=== PATIENT | male | born 1940 | race Caucasian/White ===

== ENCOUNTER 2020-04-17 08:31 | Emergency (ER) | payer MEDICARE, SELFPAY ==
[2020-04-17] VITALS (11 sets, daily range): BP systolic 106–134; BP diastolic 57–82; PULSE 55–81; RESP 14–25; TEMP 36.8; O2SAT 93–98
--- NOTE | 2020-04-17 08:45 | RT.EKG_ITS ---
APPROVED REPORT Exam: Resting ECG Patient Location: E HR:62 bpm ECG Measurements Heart Rate 62 AXIS ME 69 P 53 QRSd 137 QRS 59 QT 419 T 0 QTc 425 <Conclusion> Sinus rhythm...normal P axis, V-rate 60- 99 Atrial premature complexes in couplets...pair SV complexes w/ short R-R Right bundle branch block...QRSd>120, terminal axis(90,270)
[2020-04-17] MEDS: Cephalexin 500 MG CAP PO (09:18)
--- NOTE | 2020-04-17 10:01 | W.ED.GENAD ---
Discharge Plan Disposition Patient Disposition: HOME Condition: Stable Discharge Details Chief Complaint: Orthopedic Clinical Impression: APC (atrial premature contractions), Onychomycosis, Infection of toenail Primary Care Provider: Francis Zamora ED Provider: Oscar Gutierrez Home Meds and New Rx's Prescriptions: New cephalexin [Keflex] 500 mg capsule 500 mg PO TID Qty: 20 RF: 0 Continued Prevnar 13 (PF) 0.5 ML syringe 0.5 ml IM ONCE Qty: 1 RF: 0 metoprolol succinate 100 mg tablet extended release 24 hr 50 mg PO BID Qty: 90 RF: 4 tamsulosin [Flomax] 0.4 mg capsule 0.4 mg PO HS Qty: 60 RF: 11 aspirin [Aspir-81] 81 MG tablet,delayed release (DR/EC) 162 mg PO DAILY RF: 0 Discharge Instructions Additional Instructions: Please take antibiotic as prescribed. Please follow-up with podiatry. Call tomorrow. Please follow-up with your executive marketing assistant. Call tomorrow. Please contact your primary care physician to arrange follow-up. Return to the ER for any worsening or new concerning symptoms. Referrals: Abhijit Junior DPM [[facility] STAFF PHYSICIAN] - Francis Zamora MD [Primary Care Provider] - Discharge Data Discharge Date/Time-TO BE ENTERED AT DEPARTURE: 04/17/20 09:44 Medical Decision Making 80-year-old male here with onychomycosis of his right great toe with mild erythema and tenderness medial and proximal nail bed with no fluctuance. Suspect ingrown toenail versus early paronychia. Will prescribe Keflex and have him follow-up with podiatry. I was notified by nursing that patient was having abnormal rhythm. An ECG was done by protocol. ECG was reviewed and interpreted by me and reveals sinus rhythm with frequent PACs. Given history of AVNRT and status post remote ablation with intermittent lightheadedness, I will refer patient to follow-up with his executive marketing assistant. HPI General Mode of arrival: ambulatory. Date/Time Provider Initiated Documentation: 04/17/20 08:35. Limitations to Documentation: no limitations. Information obtained by: patient. HPI Narrative: 80-year-old male with history of AVNRT status post ablation, hyperlipidemia, hypertension, here with chief complaint of toe pain. Patient notes right great toe pain for the past couple days. Pain localized to distal toe along his toenail. He is concern for ingrown toenail. He notes he injured his toe in the remote past and has had chronic deformity of the toenail. Patient denies chest pain, palpitations, or lightheadedness. He does note that he experiences intermittent lightheadedness chronically. Related Data Home Medications Medication Instructions Recorded Confirmed aspirin [Aspir-81] 162 mg PO DAILY 01/12/16 04/17/20 Prevnar 13 (PF) 0.5 ml IM ONCE #1 syr 05/02/18 04/17/20 metoprolol succinate 100 mg 50 mg PO BID #90 tab-cap 12/29/19 04/17/20 tablet,extended release 24 hr tamsulosin 0.4 mg capsule 0.4 mg PO HS #60 tab-cap 01/04/20 04/17/20 cephalexin [Keflex] 500 mg PO TID #20 cap 04/17/20 Previous Rx's Medication Instructions Recorded Prevnar 13 (PF) 0.5 ml IM ONCE #1 syr 05/02/18 metoprolol succinate 100 mg 50 mg PO BID #90 tab-cap 12/29/19 tablet,extended release 24 hr tamsulosin 0.4 mg capsule 0.4 mg PO HS #60 tab-cap 01/04/20 cephalexin [Keflex] 500 mg PO TID #20 cap 04/17/20 Allergies Allergy/AdvReac Type Severity Reaction Status Date / Time peach Allergy Severe hives Verified 04/17/20 08:52 strawberry Allergy Severe hives Verified 04/17/20 08:52 tomato Allergy Severe hives Verified 04/17/20 08:52 General Stated Complaint: Orthopedic JUAN: 3 Review of Systems All systems reviewed & are unremarkable except as noted in HPI and below Constitutional Constitutional: Denies fever(s) Integumentary/Breasts Skin/Breast: Reports as per HPI [facility] Medical History Actinic keratosis Anxiety Benign neoplasm of scrotum Essential hypertension Hyperlipidemia Surgical History Cholecystectomy 10/2014 Family History Mother Cancer Father Stroke Sister No problems noted. Sister Diabetes Brother Essential hypertension Brother Stroke Maternal Grandmother Stroke Daughter S/P thyroidectomy 02/2015 Son No problems noted. Daughter No problems noted. Social History Smoking/Tobacco Use Status: Former Tobacco Use Second Hand Exposure: No Alcohol Intake: former Drug use: Never Substance use type: does not use Caregiver/Support person: No Household members: none Housing: house Communication Needs: Corrective Lenses Pets and animals: No Sexually active: No Do you think of yourself as: straight/heterosexual Current gender identity: female What is your relationship status?: How often do you talk on the phone with friends or family?: twice per week How often do you get together with friends or relatives?: three or more times per week How often do you attend mandaen or pentecostalism services?: 1-3 times per year Do you belong to any clubs or organized social groups?: yes Panel score (0-1 are the most socially isolated patients): 2 What type of physical activity do you participate in: other Details: dance, house and lawn work Duration: > 90 minutes/day Frequency: 3-4 times per week Afia/Yarsanism: Jehovah'S Witness Special afia needs: No Seatbelt use: always Helmet use: No Drive intox or ride w/intox truck driver rubbish collector: No Exam Const General: cooperative and no acute distress HENMT Mouth: moist mucous membranes Eyes Conjunctivae: normal conjunctivae Sclera: normal sclerae Resp Auscultation: clear to auscultation bilaterally, no rales, no rhonchi and no wheezes Cardio Jugular venous pressure: no JVD Rate: regular rate and not tachycardic Rhythm: abnormal rhythm irregularly irregular GI Palpation: soft, not firm, no guarding, no masses, not rigid and nontender Skin General skin exam: no rashes or lesions noted Neuro General: patient alert, patient awake, patient oriented x3 and tone normal Extrem General: no edema Right lower extremity: foot (Onychomycosis great toe, tender along medial toenail, no fluctuance) Details: other (Mild erythema base of great toenail) Course Vital Signs Vital signs: Vital Signs Temperature 36.8 C 04/17/20 08:48 Pulse 61 04/17/20 08:48 Respiratory Rate 18 04/17/20 08:48 Blood Pressure 106/69 07/19/20 08:48 Pulse Oximetry 98 04/17/20 08:48 Temperature 36.8 C 04/17/20 08:48 Pulse 65 04/17/20 09:43 Pulse 65 04/17/20 09:31 Respiratory Rate 22 04/17/20 09:43 Respiratory Effort Non-Labored 04/17/20 08:54 Blood Pressure 134/59 L 04/17/20 09:43 Blood Pressure Mean 77 04/17/20 09:31 Blood Pressure Position Sitting 04/17/20 08:48 Pulse Oximetry 96 04/17/20 09:43 Oxygen Delivery Method Room Air 04/17/20 08:48 Oxygen Flow Rate 0 04/17/20 08:48 Pain Level 0 04/17/20 08:48
== END 2020-04-17 09:44 | disposition home or self-care (01) ==
PROVIDERS: Emergency Provider Student in an Organized Health Care Education/Training Program; PCP Family Medicine
DX: B35.1 Tinea unguium (principal); I49.1 Atrial premature depolarization; I47.1 Supraventricular tachycardia; I10 Essential (primary) hypertension
CPT/HCPCS: 93005; 99283; 93010

== ENCOUNTER 2020-05-23 09:43 | Outpatient (CLI) | payer MEDICARE, SELFPAY ==
[2020-05-23 12:54] LABS: Anion Gap 4.9 mmol/L (3-11); BUN 13 mg/dL (7-18); CO2 29.1 mmol/L (21.0-32.0); CREATININE 0.96 mg/dL (0.70-1.30); Calcium 8.9 mg/dL (8.5-10.1); Chloride 109 mmol/L (98-107); Glucose 124 mg/dL (74-106); Sodium 143 mmol/L (136-145)
== END 2020-05-23 10:03 ==
PROVIDERS: PCP Family Medicine; Visit Provider Family Medicine
DX: I10 Essential (primary) hypertension (principal)
CPT/HCPCS: 36415; 80048

== ENCOUNTER 2020-08-22 13:33 | Outpatient (CLI) | payer MEDICARE, SELFPAY ==
[2020-08-24 18:19] LABS: Patient Race White; SARS-CoV-2 RNA Undetected (Undetected); SARS-CoV-2 Specimen Source Nasal
== END 2020-08-22 13:53 ==
PROVIDERS: PCP Family Medicine; Visit Provider Family Medicine
DX: Z11.59 Encounter for screening for other viral diseases (principal)
CPT/HCPCS: U0003

== ENCOUNTER 2020-09-15 09:50 | Outpatient (CLI) | payer MEDICARE, SELFPAY ==
[2020-09-16 14:50] LABS: COVID-19 RT-PCR UVMMC Result Negative (Negative)
== END 2020-09-15 10:10 ==
PROVIDERS: PCP Family Medicine; Visit Provider Family Medicine
DX: Z20.828 Contact with and (suspected) exposure to other viral communicable diseases (principal)
CPT/HCPCS: U0003

== ENCOUNTER 2021-08-25 02:44 | Outpatient (CLI) | payer MEDICARE, SELFPAY ==
[2021-08-25 10:46] LABS: Bilirubin Negative (Negative); Blood Moderate (Negative); Clarity Clear (Clear); Glucose Negative (Negative); Ketones Negative (Negative); Leukocyte Esterase Negative (Negative); Nitrite Negative (Negative); Specific Gravity 1.025 (1.005-1.025); Urobilinogen 0.2 EU/dL (Up TO 0.2); pH 5.5 (5-8)
[2021-08-25 10:57] LABS: Bacteria Rare HPF (Negative); C & S Indicated? No; Casts Negative LPF (Negative); Crystals Negative HPF (Negative); Epithelial Cells Negative HPF (Negative); Mucus Negative (Negative); Other Cells Negative (Negative); WBC 0-2 HPF (0-5)
[2021-08-25 11:11] LABS: ALT 20 U/L (16-63); AST 20 U/L (15-37); Albumin 3.7 g/dL (3.4-5.0); Alkaline Phosphatase 75 U/L (46-116); Anion Gap 4.6 mmol/L (3-11); BUN 15 mg/dL (7-18); Bilirubin, Total 0.5 mg/dL (0.2-1.0); CO2 31.4 mmol/L (21.0-32.0); CREATININE 1.2 mg/dL (0.70-1.30); Calcium 8.8 mg/dL (8.5-10.1); Calculated LDL 122 mg/dL (<100); Chloride 105 mmol/L (98-107); Cholesterol 182 mg/dL (<200); Glucose 97 mg/dL (74-106); HDL Cholesterol 43 mg/dL (40-60); Potassium 4.5 mmol/L (3.5-5.1); Sodium 141 mmol/L (136-145); Triglyceride 86 mg/dL (<150)
[2021-08-25 17:37] LABS: PSA, Screening 17.7 ng/mL (0.0-6.5)
== END 2021-08-25 02:45 | disposition home or self-care (01) ==
LOC: LBO 02:44
PROVIDERS: PCP Family Medicine; Visit Provider Family Medicine
DX: I10 Essential (primary) hypertension; R35.0 Frequency of micturition; I47.1 Supraventricular tachycardia; Z12.5 Encounter for screening for malignant neoplasm of prostate
CPT/HCPCS: 36415; 80053; 80061; 84153; 81003; 81015

== ENCOUNTER 2021-08-29 01:31 | Outpatient (CLI) | payer MEDICARE, SELFPAY ==
--- OUTSIDE RECORDS SUMMARY | 2021-08-29 01:33 | XMS_ITS | Referral Summary ---
:1940 Author Organization [facility] Address [address] [place] [address] Encounter Date(s): 11/26/18 - 11/27/18 [facility] [address] [place] [address]- Encounter Diagnosis Hematuria (Discharge Diagnosis) - 11/26/18 Dizziness (Discharge Diagnosis) - 11/26/18 Discharge Disposition: Home Attending Physician: TONEY COELMAN MD Vital Signs Most recent to oldest 1 2 3 [Reference Range]: Temperature Oral 36.8 DegC [35.8-37.3 DegC] (11/26/18 10:39 AM) Heart Rate [50-100 bpm] 65 bpm 65 bpm 64 bpm (11/27/18 12:44 PM) (11/27/18 10:45 AM) (11/27/18 1 0:08 AM) Heart Rhythm Monitored Sinus Rhythm Sinus miguelangel Sinus bra dy (11/27/18 8:15 AM) (11/27/18 6:25 AM) (11/27/18 5:2 5 AM) Respiratory Rate [11-21 16 br/min 16 br/min 16 br/mi n br/min] (11/27/18 12:44 PM) (11/27/18 10:45 AM) (11/27/18 8 :15 AM) Oxymetry Monitoring Spot Check Spot Check Continuous (11/27/18 12:44 PM) (11/27/18 10:45 AM) (11/27/18 8 :15 AM) Oxygen Saturation [89-101 97 % 96 % 97 % %] (11/27/18 12:44 PM) (11/27/18 10:45 AM) (11/27/18 1 0:08 AM) Oxygen Delivery Room air Nasal cannula Nasal cannula (11/27/18 12:44 PM) (11/27/18 8:15 AM) (11/27/18 3: 29 AM) Oxygen Flow 2 L/min 2 L/min 2 L/min (11/27/18 8:15 AM) (11/27/18 3:29 AM) (11/27/18 3:0 0 AM) Cuff BP Mean 94 mmHg 106 mmHg 108 mmHg (11/27/18 3:29 AM) (11/26/18 9:28 PM) (11/26/18 5:1 4 PM) BP Site Right upper (11/26/18 5:14 PM) Vital Signs Note eating breakfast Dt Michael at bedside, eating breakfast. teleneuro doctor in process (11/27/18 12:35 PM) (11/27/18 10:45 AM) (11/27/18 1 0:37 AM) Blood Pressure 115/71 mmHg 156/81 mmHg 133/84 mmHg (11/27/18 12:44 PM) (11/27/18 10:45 AM) (11/27/18 8 :15 AM) Height 172.7 cm 172.7 cm (11/26/18 10:45 AM) (11/26/18 10:39 AM) CLINICALWEIGHT 79.9 kg 79.9 kg (11/26/18 10:45 AM) (11/26/18 10:39 AM) Dosing Weight Type Bed Scale Bed Scale (11/26/18 10:45 AM) (11/26/18 10:39 AM) Body Mass Index 26.79 kg/m2 26.79 kg/m2 (11/26/18 10:45 AM) (11/26/18 10:39 AM) [place] Body Weight 68.38 kg 68.38 kg (11/26/18 10:45 AM) (11/26/18 10:39 AM) Height Obtained Patient stated Patient stated (11/26/18 10:45 AM) (11/26/18 10:39 AM) Problem List Condition Effective Dates Status Health Status Informant Stroke(Confirmed) Active HTN (hypertension)(Confirmed) Active Syncopal episodes(Confirmed) Active Diagnosis Diagnosis Type Effective Dates Health Status Clinical Serv ice Informant Hematuria Discharge 11/26/18 Non-Specified Diagnosis Dizziness Discharge 11/26/18 Non-Specified Diagnosis Allergies, Adverse Reactions, Alerts No Known Allergies Medications Antivert 12.5 mg oral tablet 12.5 mg = 1 Tab(s), Oral, TID, PRN for dizziness, # 30 Tab(s), Refill(s) 0, Pharmacy: [facility] #[id number] Start Date: 11/26/18 Stop Date: 12/26/18 Status: Orderedaspirin 81 mg oral delayed release tablet 81 mg = 1 Tab(s), Oral, Daily, # 30 Tab(s), Refill(s) 0, [id number] Start Date: 11/27/18 Stop Date: 12/27/18 Status: Ordereddoxycycline 100 mg = 1 Cap(s), Oral, BID Start Date: 11/26/18 Stop Date: 12/26/18 Status: Orderedfexofenadine (Destiny), 60 mg = 1 Tab(s), Oral, BID Start Date: 11/26/18 Stop Date: 12/26/18 Status: OrderedMetoprolol CR (Toprol-XL), 50 mg, Oral, BID Start Date: 11/26/18 Stop Date: 12/26/18 Status: Orderedtamsulosin (Flomax), 0.4 mg = 1 Cap(s), Oral, HS Start Date: 11/26/18 Stop Date: 12/26/18 Status: OrderedZofran ODT 4 mg oral tablet, disintegrating 4 mg = 1 Tab(s), Oral, Q6HRS, PRN Nausea, # 10 Tab(s), Refill(s) 0, Pharmacy: [facility] #[id number] Start Date: 11/26/18 Stop Date: 12/26/18 Status: Ordered Results Hematology Most recent to oldest [Reference Range]: 1 2 HGB [14.0-18.0 g/dL] 16.5 g/dL (11/26/18 11:00 AM) HCT [42.0-50.0 %] 49.4 % (11/26/18 11:00 AM) WBC [4.0-11.0 x10^3/uL] 7.2 x10^3/uL (11/26/18 11:00 AM) PLT [139-411 x10^3/uL] 290 x10^3/uL (11/26/18 11:00 AM) RBC [4.70-6.00 x10^6/uL] 5.45 x10^6/uL (11/26/18 11:00 AM) MCV [79.9-97.7 fL] 90.7 fL (11/26/18 11:00 AM) MCH [27.4-33.4 pg] 30.3 pg (11/26/18 11:00 AM) MCHC [32.0-36.0 g/dL] 33.4 g/dL (11/26/18 11:00 AM) MPV [7.9-11.9 fL] 8.7 fL (11/26/18 11:00 AM) RDW [11.5-15.5 %] 14.5 % (11/26/18 11:00 AM) Lymph Auto [24.0-44.0 %] 25.0 % (11/26/18 11:00 AM) Neutro Auto [36.0-66.0 %] 62.8 % (11/26/18 11:00 AM) [place] Auto [1.0-7.0 %] 8.8 % *HI* (11/26/18 11:00 AM) Eos Auto [0.0-6.0 %] 3.0 % (11/26/18 11:00 AM) Baso Auto [0.0-2.0 %] 0.4 % (11/26/18 11:00 AM) Abs Neutro Auto [1.8-8.0 x10^3/mm^3] 4.5 x10^3/mm^3 (11/26/18 11:00 AM) Abs Lymph Auto [1.0-4.8 x10^3/mm^3] 1.8 x10^3/mm^3 (11/26/18 11:00 AM) Abs [place] Auto [0.0-0.4 x10^3/mm^3] 0.6 x10^3/mm^3 *HI* (11/26/18 11:00 AM) Abs Eos Auto [0.0-0.5 x10^3/mm^3] 0.2 x10^3/mm^3 (11/26/18 11:00 AM) Abs Baso Auto [0.0-0.2 x10^3/mm^3] 0.0 x10^3/mm^3 (11/26/18 11:00 AM) Chemistry Most recent to oldest [Reference Range]: 1 2 Sodium [136-145 mmol/L] 143 mmol/L (11/26/18 11:00 AM) Potassium [3.4-4.5 mmol/L] 4.2 mmol/L (11/26/18 11:00 AM) Chloride [96-107 mmol/L] 106 mmol/L (11/26/18 11:00 AM) CO2 [22-30 mmol/L] 25 mmol/L (11/26/18 11:00 AM) Anion Gap [10-20 mmol/L] 12 mmol/L (11/26/18 11:00 AM) Calcium [8.4-10.2 mg/dL] 10.0 mg/dL (11/26/18 11:00 AM) Glucose [65-105 mg/dL] 106 mg/dL *HI* (11/26/18 11:00 AM) BUN [9-20 mg/dL] 16 mg/dL (11/26/18 11:00 AM) Creatinine [0.80-1.20 mg/dL] 1.07 mg/dL (11/26/18 11:00 AM) eGFR [>=60 mL/min/1.73m^2] >60 mL/min/1.73m^2 1 (11/26/18 11:00 AM) eCrCl 57 mL/min 2 *NA* (11/26/18 11:00 AM) Bili Total [0.20-1.30 mg/dL] 0.60 mg/dL (11/26/18 11:00 AM) Alk Phos [40-129 unit/L] 71 unit/L (11/26/18 11:00 AM) Albumin [3.5-5.0 g/dL] 3.9 g/dL (11/26/18 11:00 AM) Total Protein [6.3-8.2 g/dL] 7.3 g/dL (11/26/18 11:00 AM) ALT [0-41 unit/L] 14 unit/L (11/26/18 11:00 AM) AST [0-40 unit/L] 22 unit/L (11/26/18 11:00 AM) Troponin T [0.00-0.09 ng/mL] 0.01 ng/mL 0.01 ng/mL (11/26/18 5:45 PM) (11/26/18 11:00 AM) 1Result Comment: If the patient is , the result should be multiplied by 1.210. Estimated GFR values of 60 mL/min/1.73 m(sqr) and below have more clinical implications for classification of kidney function than values above this level. The equation has been most extensively evaluated in p eople with chronic kidney disease and reduced GFR and is less accurate for persons with normal or mildly impaired kidney function. The eGFR equation has not been validated for use outside the age rangeof 18-70, for women, patients with serious comorbid conditions, or persons with extremes ofbody size, muscle mass, or nutritional status. Application of the equation to these patient groups may lead to errors in GFR estimation.2Result Comment: Estimated Creatinine Clearance calculated with Cockroft-Gault formula = (140-Age)* [place] BW/72*SrCr. Calculated by Discern Expert at that time using: [place] BW = 68.63 kg, SrCr = 1.07 mg/dL. The Cockcroft-Gault equation estimates creatinine clearance (eCrCl). Pharmacokinetics studies over the years have used this equation to determine level of kidney function for dosage adjustment in the FDA approved labeling of drugs. As a result, it has become a standard for drug dosing. The MDRD study equation estimates glomerular filtration rate (eGFR). Studies have found that this equation is a more accurate estimate of the glomerular filtration rate than the Cockcroft-Gault equation. As a result, it has become a standard for staging chronic kidney disease. The National Kidney Disease Education Program recommends using either eCrCl or eGFR for drug dosing. However, published studies report that drug dosages determined by the two equations do not agree in 10-40% of cases. For times when the two equations do not agree, choose the dosing regimen that optimizes the risk:benefit ratio given the patient's specific clinical scenario.Urinalysis Most recent to oldest [Reference Range]: 1 2 UA Color [Yellow] Yellow (11/26/18 12:15 PM) UA Clarity [Clear] CLEAR *NA* (11/26/18 12:15 PM) UA pH [5.0-8.0 pH] 7.0 pH (11/26/18 12:15 PM) UA Spec Grav [1.000-1.030] 1.018 (11/26/18 12:15 PM) UA Protein [Negative mg/dL] Negative mg/dL (11/26/18 12:15 PM) UA Glucose [Negative mg/dL] Negative mg/dL (11/26/18 12:15 PM) UA Ketones [Negative mg/dL] Negative mg/dL (11/26/18 12:15 PM) UA Bili [Negative] Negative (11/26/18 12:15 PM) UA Blood [Negative] Moderate *ABN* (11/26/18 12:15 PM) UA Nitrite [Negative] Negative (11/26/18 12:15 PM) UA Leuk Est [Negative] Negative (11/26/18 12:15 PM) UA Urobilinogen [Negative] <2.0 (11/26/18 12:15 PM) Urine Microscopic Yes *NA* (11/26/18 12:15 PM) UA WBC [0-2 cells/hpf] 1 cells/hpf (11/26/18 12:15 PM) UA RBC [0-2 cells/hpf] 37 cells/hpf *HI* (11/26/18 12:15 PM) UA Epithelial [0-1 cells/hpf] 0 cells/hpf (11/26/18 12:15 PM) UA Bacteria None *NA* (11/26/18 12:15 PM) UA Mucus Few (11/26/18 12:15 PM) Procedures Procedure Date Related Diagnosis Body Site Status Ablation Completed Social History Social History Type Response Smoking Status Former smoker, quit more terry n 30 days ago entered on: 11/26/18 Functional Status COGNITIVE11/27/18 Level of Consciousness Alert, Awake Orientation Oriented x 4 11/26/18 General Assessment WDL Affect/Behavior Calm, Cooperative Hospital Discharge Instructions Patient Noyfvmsbc31/27/2019 10:35:10Benign Positional VertigoBenign Positional Vertigo Vertigo means you feel like you or your surroundings are moving when they are not. Benign positionalvertigo is the most common form of vertigo. Benign means that the cause of your condition is not serious. Benign positional vertigo is more common in older adults. CAUSES Benign positional vertigo is the result of an upset in the labyrinth system. This is an area in the middle ear that helps control your balance. This may be caused by a viral infection, head injury, or repetitive motion. However, often no specific cause is found. SYMPTOMS Symptoms of benign positional vertigo occur when you move your head or eyes in different directions.Some of the symptoms may include: ?Loss of balance and falls. ?Vomiting. ?Blurred vision. ?Dizziness. ?Nausea. ?Involuntary eye movements (nystagmus). DIAGNOSIS Benign positional vertigo is usually diagnosed by physical exam. If the specific cause of your benign positional vertigo is unknown, your caregiver may perform imaging tests, such as magnetic resonanceimaging (MRI) or computed tomography (CT). TREATMENT Your caregiver may recommend movements or procedures to correct the benign positional vertigo. Medicines such as meclizine, benzodiazepines, and medicines for nausea may be used to treat your symptoms.In rare cases, if your symptoms are caused by certain conditions that affect the inner ear, you may need surgery. HOME CARE INSTRUCTIONS ?Follow your caregiver's instructions. ?Move slowly. Do not make sudden body or head movements. ?Avoid driving. ?Avoid operating heavy machinery. ?Avoid performing any tasks that would be dangerous to you or others during a vertigo episode. ?Drink enough fluids to keep your urine clear or pale yellow. SEEK IMMEDIATE MEDICAL CARE IF: ?You develop problems with walking, weakness, numbness, or using your arms, hands, or legs. ?You have difficulty speaking. ?You develop severe headaches. ?Your nausea or vomiting continues or gets worse. ?You develop visual changes. ?Your family or friends notice any behavioral changes. ?Your condition gets worse. ?You have a fever. ?You develop a stiff neck or sensitivity to light. MAKE SURE YOU: ?Understand these instructions. ?Will watch your condition. ?Will get help right away if you are not doing well or get worse. This information is not intended to replace advice given to you by your health care provider. Make sure you discuss any questions you have with your health care provider. Document Released: 06/24/2007 Document Revised: 12/08/2012 Document Reviewed: 01/09/2016 Elsevier Interactive Patient Education ??2016 [employer] Dizziness, [id number]-[id number] Dizziness is a common problem. It makes you feel unsteady or lightheaded. You may feel like you are about to pass out (faint). Dizziness can lead to injury if you stumble or fall. Anyone can get dizzy,but dizziness is more common in older adults. This condition can be caused by a number of things, including: ?Medicines. ?Dehydration. ?Illness. HOME CARE Following these instructions may help with your condition: Eating and Drinking ?Drink enough fluid to keep your pee (urine) clear or pale yellow. This helps to keep you fromgetting dehydrated. Try to drink more clear fluids, such as water. ?Do not drink alcohol. ?Limit how much caffeine you drink or eat if told by your doctor. ?Limit how much salt you drink or eat if told by your doctor. Activity ?Avoid making quick movements. ?When you stand up from sitting in a chair, steady yourself until you feel okay. ?In the morning, first sit up on the side of the bed. When you feel okay, stand slowly while youhold onto something. Do this until you know that your balance is fine. ?Move your legs often if you need to twisting frame operator one place for a long time. Tighten and relax your muscles in your legs while you are standing. ?Do not drive or use heavy machinery if you feel dizzy. ?Avoid bending down if you feel dizzy. Place items in your home so that they are easy for you to reach without leaning over. Lifestyle ?Do not use any tobacco products, including cigarettes, chewing tobacco, or electronic cigarettes. If you need help quitting, ask your doctor. ?Try to lower your stress level, such as with yoga or meditation. Talk with your doctor if youneed help. General Instructions ?Watch your dizziness for any changes. ?Take medicines only as told by your doctor. Talk with your doctor if you think that your dizziness is caused by a medicine that you are taking. ?Tell a friend or a family member that you are feeling dizzy. If he or she notices any changesin your behavior, have this person call your doctor. ?Keep all follow-up visits as told by your doctor. This is important. GET HELP IF: ?Your dizziness does not go away. ?Your dizziness or light-headedness gets worse. ?You feel sick to your stomach (nauseous). ?You have trouble hearing. ?You have new symptoms. ?You are unsteady on your feet or you feel like the room is spinning. GET HELP RIGHT AWAY IF: ?You throw up (vomit) or have diarrhea and are unable to eat or drink anything. ?You have trouble: ?Talking. ?Walking. ?Swallowing. ?Using your arms, hands, or legs. ?You feel generally weak. ?You are not thinking clearly or you have trouble forming sentences. It may take a friend or family member to notice this. ?You have: ?Chest pain. ?Pain in your belly (abdomen). ?Shortness of breath. ?Sweating. ?Your vision changes. ?You are bleeding. ?You have a headache. ?You have neck pain or a stiff neck. ?You have a fever. This information is not intended to replace advice given to you by your health care provider. Make sure you discuss any questions you have with your health care provider. Document Released: 09/04/2012 Document Revised: 01/31/2016 Document Reviewed: 09/12/2015 [employer] Patient Education ??2016 [id number]. Hematuria, AdultHematuria, Adult Hematuria is blood in your urine. It can be caused by a bladder infection, kidney infection, prostate infection, kidney stone, or cancer of your urinary tract. Infections can usually be treated with medicine, and a kidney stone usually will pass through your urine. If neither of these is the cause of your hematuria, further workup to find out the reason may be needed. It is very important that you tell your health care provider about any blood you see in your urine, even if the blood stops without treatment or happens without causing pain. Blood in your urine that happens and then stops and then happens again can be a symptom of a very serious condition. Also, painis not a symptom in the initial stages of many urinary cancers. HOME CARE INSTRUCTIONS ?Drink lots of fluid, 3???4 quarts a day. If you have been diagnosed with an infection, cranberry juice is especially recommended, in addition to large amounts of water. ?Avoid caffeine, tea, and carbonated beverages because they tend to irritate the bladder. ?Avoid alcohol because it may irritate the prostate. ?Take all medicines as directed by your health care provider. ?If you were prescribed an antibiotic medicine, finish it all even if you start to feel better. ?If you have been diagnosed with a kidney stone, follow your health care provider's instructions regarding straining your urine to catch the stone. ?Empty your bladder often. Avoid holding urine for long periods of time. ?After a bowel movement, women should cleanse front to back. Use each tissue only once. ?Empty your bladder before and after sexual intercourse if you are a female. SEEK MEDICAL CARE IF: ?You develop back pain. ?You have a fever. ?You have a feeling of sickness in your stomach (nausea) or vomiting. ?Your symptoms are not better in 3 days. Return sooner if you are getting worse. SEEK IMMEDIATE MEDICAL CARE IF: ?You develop severe vomiting and are unable to keep the medicine down. ?You develop severe back or abdominal pain despite taking your medicines. ?You begin passing a large amount of blood or clots in your urine. ?You feel extremely weak or faint, or you pass out. MAKE SURE YOU: ?Understand these instructions. ?Will watch your condition. ?Will get help right away if you are not doing well or get worse. This information is not intended to replace advice given to you by your health care provider. Make sure you discuss any questions you have with your health care provider. Document Released: 09/16/2006 Document Revised: 10/07/2015 Document Reviewed: 05/17/2014 [employer] Patient Education ??2016 [employer] Near-Syncope, Wxsa-sn-NyahMufd-Syncope Near-syncope (commonly known as near fainting) is sudden weakness, dizziness, or feeling like you might pass out. This can happen when getting up or while standing for a long time. It is caused by a sudden decrease in blood flow to the brain, which can occur for various reasons. Most of the reasons are not serious. HOME CARE Watch your condition for any changes. ?Have someone stay with you until you feel stable. ?If you feel like you are going to pass out: ?Lie down right away. ?Prop your feet up if you can. ?Breathe deeply and steadily. ?Move only when the feeling has gone away. Most of the time, this feeling lasts only a few minutes. You may feel tired for several hours. ?Drink enough fluids to keep your pee (urine) clear or pale yellow. ?If you are taking blood pressure or heart medicine, stand up slowly. ?Follow up with your doctor as told. GET HELP RIGHT AWAY IF: ?You have a severe headache. ?You have unusual pain in the chest, belly (abdomen), or back. ?You have bleeding from the mouth or butt (rectum), or you have black or tarry poop (stool). ?You feel your heart beat differently than normal, or you have a very fast pulse. ?You pass out, or you twitch and shake when you pass out. ?You pass out when sitting or lying down. ?You feel confused. ?You have trouble walking. ?You are weak. ?You have vision problems. MAKE SURE YOU: ?Understand these instructions. ?Will watch your condition. ?Will get help right away if you are not doing well or get worse. This information is not intended to replace advice given to you by your health care provider. Make sure you discuss any questions you have with your health care provider. Document Released: 03/04/2009 Document Revised: 10/07/2015 Document Reviewed: 02/19/2014 Elsevier Interactive Patient Education ??2016 Elsevier Inc. Vertigo, Zwxl-ps-FxneUoijzlr Vertigo means you feel like you are moving when you are not. Vertigo can make you feel like things around you are moving when they are not. This problem often goes away on its own. HOME CARE ?Follow your doctor's instructions. ?Avoid driving. ?Avoid using heavy machinery. ?Avoid doing any activity that could be dangerous if you have a vertigo attack. ?Tell your doctor if a medicine seems to cause your vertigo. GET HELP RIGHT AWAY IF: ?Your medicines do not help or make you feel worse. ?You have trouble talking or walking. ?You feel weak or have trouble using your arms, hands, or legs. ?You have bad headaches. ?You keep feeling sick to your stomach (nauseous) or throwing up (vomiting). ?Your vision changes. ?A family member notices changes in your behavior. ?Your problems get worse. MAKE SURE YOU: ?Understand these instructions. ?Will watch your condition. ?Will get help right away if you are not doing well or get worse. This information is not intended to replace advice given to you by your health care provider. Make sure you discuss any questions you have with your health care provider. Document Released: 06/25/2009 Document Revised: 12/08/2012 Document Reviewed: 01/09/2016 [employer] Patient Education ??2016 [id number]. Follow Up Care11/26/2018 10:35:10With:JULIANE STRATTON Address: [facility] [address] [place] [address] [address] [place] [address] Business (1) When:Call for next available appointment Comments:You had some hematuria or blood in your urine today. This is not highly on usual for older men but does require additional evaluation. You have been provided information to follow-up with urology, Dr. Stratton.With:[facility] [phone] Address:Unknown When:Call for next available appointment Comments:You need a primary care who can help facilitate and organize your care. You have one in [facility] will be here for an extended period of time and so should be seen for additional testing and evaluation. Return to the ER for any concerns or changes.With:[facility] Address: [address] [place] [address] , [place] [address] Business (1) When:Call for next available appointment Comments:Follow-up with your, nose, throat for evaluation of possible vertigo. It is not uncommon to feel dizzy when you have a head cold . Your head CT did not find any acute changes but did find some evidence of age expected atrophy as well as possibility of past ischemic event or stroke.With:JANETTE FULTON Address: [facility] [address] [address] Business (1) When:Call for next available appointment Comments:Follow-up with either Dr. Fulton or his associates for further evaluation. You have ongoing near syncope and history of syncopal episodes that require further workup related to cardiac function. YourEKG did not show any acute myocardial events today. Your troponin was normal. Your chest x-ray show ed slight congestion or pulmonary edema but this is not something that we would treat today in the ER as you do not have shortness of breath or difficulty breathing and your room air O2 sat was normal.
--- NOTE | 2021-08-29 13:50 | DI.US_ITS ---
APPROVED REPORT EXAM: Comprehensive 2D, Doppler, and color-flow Echocardiogram Patient Location: Out-Patient Loan Administrator: Luisa Trevino RDCS (AE) Indications: SOB, Syncope Other Information Study Quality: Adequate Conclusion Normal left ventricular size and systolic function. Estimated ejection fraction is 60%. Wall motion is normal Normal right ventricular size and systolic function Both atria are normal in size There is no structural or hemodynamically significant valvular disease Normal estimated right ventricular systolic pressure 21 mmHg Wall motion Left Ventricle The left ventricle is normal size. The left ventricular systolic function is normal. The left ventric ular ejection fraction is within the normal range. There is normal left ventricular wall thickness. T here is normal LV segmental wall motion. There is no ventricular septal defect visualized. LVEF is 60 %. Right Ventricle The right ventricle is normal size. The right ventricular systolic function is normal. The RVSP is 21 .7 mmHg. Atria The left atrium size is normal. The right atrium size is normal. The interatrial septum is intact wit h no evidence for an atrial septal defect. Aortic Valve The aortic valve is normal in structure. Aortic valve is trileaflet. There is no aortic valvular sten osis. No aortic regurgitation is present. Mitral Valve Mild mitral annular calcification. No evidence of mitral valve stenosis. Trace to mild mitral regurgi tation. Tricuspid Valve The tricuspid valve is normal in structure. There is no tricuspid valve stenosis. Trace to mild tricu spid regurgitation. Pulmonic Valve The pulmonary valve is normal in structure. There is no pulmonic valvular stenosis. Trace pulmonic re gurgitation. Great Vessels The aortic root is normal in size. The ascending aorta is normal in size. Aortic arch is normal in ca liber. IVC is normal in size and collapses >50% with inspiration. Pericardium There is no pericardial effusion. 2D Dimensions IVSD d PLAX 0.95 cm M: 0.6-1.2 LV Vol A2C d MOD 83.6 mL LVPW d PLAX 0.98 cm M: 0.6 - 1.2 LV Vol A4C d MOD 93.5 mL LVID d PLAX 4.52 cm M: 4.2 - 5.8 LA vol/ BSA A2C s A-L 26.0 mL/m2 LVDs 3.15 cm M: 2.5 - 4.0 LA vol/ BSA A4C s A-L 25.1 mL/m2 Ao Root d 3.10 cm M: 3.1 - 3.7 LA Vol/ BSA Biplane s A-L 25.6 mL/m2 RA Area A4C 13.37 cm2 LA Area A4C s MOD 17.24 cm2 RA Vol/ BSA A4C s A-L 17.1 mL/m2 LA Area A2C s MOD 17.50 cm2 Ao Asc Diam d 3.43 cm M: 2.6 - 3.4 LV EF A4C MOD 58.5 % LV EF Teichholz 57.3 % LV EF A2C MOD 58.8 % LVEF ([place]'s) 57.50 % M: 52 - 72 LV EF Biplane MOD 57.5 % LV Volume 66.71 mL M: 62 - 150 SV 50.67 mL LV Volume Index 34.38 mL/m2 M: 34 - 74 SV Index 26.05 mL/m2 LV Vol Biplane MOD 88.1 mL FS 29.95 % M-Mode TAPSE 1.71 cm (M/F) >1.7 LV Diastology MV E' medial 0.043 (>0.07 m/s) E/A Ratio 0.7 LV E/e MED 13.70 (<14) MV E Vmax 0.59 (0.4-1.3 m/s) MV E' lateral 0.061 (>0.1 m/s) MV A Vmax 0.80 (0.4-1.3 m/s) LV E/e LAT 9.70 (<14) MV E/A Ratio 0.73 MV E/E' medial 13.75 MV E/E' lateral 9.71 Aortic Valve LVOT Area 3.45 cm2 AoV Area Vmax 2.56 cm2 LVOT Vmax 0.99 m/s AoV Area/ BSA (Vmax) 1.32 cm2/m2 LVOT Mean Juanjo. 0.62 m/s MARY Mean Juanjo. 2.11 cm2 LVOT Peak Grad 4.0 mmHg MARY Mean Juanjo. Index 1.09 cm2/m2 LVOT Mean Grad 1.8 mmHg LVOT VTI 0.189 m LVOT Diam s 2.05 cm AoV Vmax 1.34 m/s Velocity Ratio 0.73 AoV Mean Juanjo. 1.02 m/s AoV Peak Grad 7.1 mmHg LVOT SV 65.23 mL AoV Mean Grad 4.4 mmHg AoV VTI 0.272 m AoV Area VTI 2.40 cm2 AoV Area/ BSA (VTI) 1.23 cm/m2 Mitral Valve MV DT 291 (160-240 msec) MV PHT 84 msec MV Area PHT 2.61 cm2 MV VTI 0.248 m MV Area VTI 2.63 (4.0-6.0 cm2) Pulmonary Valve PV Vmax 1.07 (0.5-1.5 m/s) RVOT Peak Gr. 1.56 mmHg PV Peak Grad 4.5 mmHg RVOT Mean Gr. 0.70 mmHg PV Mean Grad 2.2 mmHg RVOT VTI 0.123 m PV VTI 0.191 m RVOT Vmax 0.62 m/s Tricuspid Valve TR Peak Grad 18.6 mmHg TR Vmax 2.16 m/s RA Pressure 3.00 mmHg RVSP (TR) 21.7 mmHg
== END 2021-08-29 01:51 ==
PROVIDERS: PCP Family Medicine; Visit Provider Internal Medicine
DX: R06.02 Shortness of breath (principal)
CPT/HCPCS: 93306

== ENCOUNTER 2021-09-13 09:46 | Outpatient (REF) | payer MEDICARE, SELFPAY ==
[2021-09-15 15:45] LABS: COVID-19 RT-PCR UVMMC Result Negative (Negative)
== END 2021-09-13 09:47 | disposition home or self-care (01) ==
LOC: LBN 09:46
PROVIDERS: PCP Family Medicine; Visit Provider Family Medicine
DX: J06.9 Acute upper respiratory infection, unspecified (principal); Z20.822 Contact with and (suspected) exposure to COVID-19
CPT/HCPCS: U0003

== ENCOUNTER 2021-12-12 18:48 | Outpatient (REF) | payer MEDICARE, SELFPAY ==
[2021-12-12 17:43] LABS: Bilirubin Negative (Negative); Blood Moderate (Negative); Clarity Sl Cloudy (Clear); Glucose Negative (Negative); Ketones Negative (Negative); Leukocyte Esterase Negative (Negative); Nitrite Negative (Negative); Specific Gravity >= 1.030 (1.005-1.025); Urobilinogen 0.2 EU/dL (Up TO 0.2); pH 5.5 (5-8)
[2021-12-12 17:50] LABS: Bacteria Few HPF (Negative); C & S Indicated? No; Casts Negative LPF (Negative); Epithelial Cells Few HPF (Negative); Mucus Moderate (Negative); WBC Negative HPF (0-5)
[2021-12-12 17:52] LABS: Crystals Few Calcium Oxalate HPF (Negative)
== END 2021-12-12 18:49 | disposition home or self-care (01) ==
LOC: LBN 18:48
PROVIDERS: PCP Family Medicine; Visit Provider Nurse Practitioner Adult Health
DX: C61 Malignant neoplasm of prostate (principal); C79.51 Secondary malignant neoplasm of bone
CPT/HCPCS: 81003; 81015

== ENCOUNTER 2021-12-13 14:27 | Outpatient (CLI) | payer MEDICARE, SELFPAY ==
--- NOTE | 2021-12-13 14:15 | RT.EKG_ITS ---
APPROVED REPORT Exam: Resting ECG Reason for Exam: tachycardia Patient Location: O HR:64 bpm ECG Measurements Heart Rate 64 AXIS PA 156 P 53 QRSd 141 QRS 74 QT 458 T -7 QTc 472 Conclusion Sinus rhythm...normal P axis, V-rate 60- 99 Right bundle branch block...QRSd>120, terminal axis(90,270)
== END 2021-12-13 14:28 | disposition home or self-care (01) ==
LOC: DI.CM 14:29
PROVIDERS: PCP Family Medicine; Visit Provider Family Medicine
DX: R00.0 Tachycardia, unspecified (principal)
CPT/HCPCS: 93010

== ENCOUNTER 2021-12-13 19:02 | Outpatient (REF) | payer MEDICARE, SELFPAY | END 2021-12-13 19:03 | disposition home or self-care (01) | LOC: LBN 19:02 | PROVIDERS: PCP Family Medicine; Visit Provider Family Medicine | DX: C61 Malignant neoplasm of prostate (principal); N50.3 Cyst of epididymis | CPT/HCPCS: 87086 ==

== ENCOUNTER 2021-12-21 03:25 | Outpatient (CLI) | payer MEDICARE, SELFPAY ==
[2021-12-21 08:11] LABS: Abs Immature Grans 0.03 10^3/uL (0.0-0.06); Absolute Basophil Count 0.04 10^3/uL (0.0-0.2); Absolute Eosinophil Count 0.22 10^3/uL (0.0-0.7); Absolute Lymphocyte Count 1.58 10^3/uL (1.2-3.4); Absolute Monocyte Count 0.67 10^3/uL (0.1-0.8); Absolute Neutrophil Count 4.92 10^3/uL (1.2-6.7); Basophils % 0.5; Eosinophils % 2.9; HCT 45.6 % (40.0-50.0); HGB 14.5 g/dL (13.5-17.5); Immature Grans % 0.4; Lymphocytes % 21.2; MCH 29.9 pg (27.0-33.0); MCHC 31.8 % (32.0-36.0); MPV 9.6 fL (8.0-11.0); Nucleated RBC 0 %; Platelet Count 277 10^3/uL (130-400); RBC 4.85 10^6/uL (4.36-5.78); RDW 13.3 % (11.8-14.1); RDW-SD 46.7 fL; WBC 7.46 10^3/uL (4.4-10.8)
[2021-12-21 08:28] LABS: ALT 22 U/L (16-63); AST 19 U/L (15-37); Albumin 3.7 g/dL (3.4-5.0); Alkaline Phosphatase 94 U/L (46-116); Anion Gap 6.3 mmol/L (3-11); BUN 22 mg/dL (7-18); Bilirubin, Total 0.3 mg/dL (0.2-1.0); CO2 30.7 mmol/L (21.0-32.0); CREATININE 1.1 mg/dL (0.70-1.30); Chloride 104 mmol/L (98-107); Glucose 85 mg/dL (74-106); Potassium 4.1 mmol/L (3.5-5.1); Sodium 141 mmol/L (136-145); Total Protein 7.7 g/dL (6.4-8.2)
[2021-12-21 08:59] LABS: FREE T4 0.89 ng/dL (0.76-1.46); TSH 4.93 uIU/mL (0.36-3.74)
[2021-12-22 16:34] LABS: PSA, Ultrasensitive 16.2 ng/mL (<= 6.5)
== END 2021-12-21 03:26 | disposition home or self-care (01) ==
LOC: LBO 03:26
PROVIDERS: PCP Family Medicine; Visit Provider Internal Medicine
DX: R00.0 Tachycardia, unspecified (principal); C61 Malignant neoplasm of prostate
CPT/HCPCS: 36415; 80053; 84153; 84403; 84439; 84443; 85025

== ENCOUNTER 2022-01-16 02:17 | Outpatient (CLI) | payer MEDICARE, SELFPAY | END 2022-01-16 02:18 | disposition home or self-care (01) | LOC: LBO 02:18 | PROVIDERS: PCP Family Medicine; Visit Provider Internal Medicine ==

== ENCOUNTER → 2022-02-09 00:54 | Outpatient (CLI) | payer MEDICARE, SELFPAY ==
--- NOTE | 2022-02-09 | DI.DEXA_ITS ---
Exam(s) XR DEXA BONE DENSITY W/WO DERIK EXAM: XR DEXA BONE DENSITY W/WO DERIK CLINICAL HISTORY: SCREENING FOR OSTEOPOROSIS, ANDROGEN DEPRIVATION THERAPY Z79.818 PROSTATE TECHNIQUE: Routine DEXA evaluation of the lumbar spine, hip, or forearm. COMPARISON: No exams were available for comparison FINDINGS: Performed on a Hologic unit. Lateral image: No compression fracture evident. Lumbar Spine total T-score: 0.3 Hip total T-score:-0.1 Independent reading at the level of the femoral neck yields at T-score of -0.9. Forearm total T-score: -1.7 IMPRESSION: Bone mineral density measures in the normal range for the lumbar spine and hip but appears osteopenia in the wrist-forearm bones.. Fracture risk is low-moderate Note: Any spine fracture indicates 5x risk for subsequent spine fracture and 2x risk for subsequent h ip fracture. World Health Organization criteria for BMD interpretation classify patients: Normal...... T- Score at or above -1.0 Osteopenic... T- Score between -1.0 and -2.5 Osteoporosis... T-Score at or below -2.5
== END ==
PROVIDERS: PCP Family Medicine; Visit Provider Internal Medicine
DX: M85.88 Other specified disorders of bone density and structure, other site (principal); Z13.820 Encounter for screening for osteoporosis; C61 Malignant neoplasm of prostate; Z79.818 Long term (current) use of other agents affecting estrogen receptors and estrogen levels
CPT/HCPCS: 36415; 77080; 80053; 80061; 82172; 84153; 84403; 82728; 83540; 83550; 84439; 84443; 84481; 85025

== ENCOUNTER 2022-02-09 23:24 | Outpatient (CLI) | payer MEDICARE, SELFPAY ==
[2022-02-09 15:21] LABS: Abs Immature Grans 0.03 10^3/uL (0.0-0.06); Absolute Basophil Count 0.05 10^3/uL (0.0-0.2); Absolute Eosinophil Count 0.31 10^3/uL (0.0-0.7); Absolute Lymphocyte Count 1.28 10^3/uL (1.2-3.4); Absolute Monocyte Count 0.53 10^3/uL (0.1-0.8); Absolute Neutrophil Count 4.56 10^3/uL (1.2-6.7); Basophils % 0.7; Eosinophils % 4.6; HCT 37.6 % (40.0-50.0); Immature Grans % 0.4; Lymphocytes % 18.9; MCHC 31.9 % (32.0-36.0); MCV 94 fL (80-95); MPV 9.9 fL (8.0-11.0); Monocytes % 7.8; Neutrophils % 67.6; Platelet Count 332 10^3/uL (130-400); RDW 13.8 % (11.8-14.1); RDW-SD 47.5 fL; WBC 6.76 10^3/uL (4.4-10.8)
[2022-02-09 15:38] LABS: ALT 40 U/L (16-63); AST 23 U/L (15-37); Albumin 3.4 g/dL (3.4-5.0); Alkaline Phosphatase 100 U/L (46-116); Anion Gap 8.5 mmol/L (3-11); BUN 16 mg/dL (7-18); Bilirubin, Total 0.5 mg/dL (0.2-1.0); CO2 28.5 mmol/L (21.0-32.0); CREATININE 1.3 mg/dL (0.70-1.30); Calcium 8.8 mg/dL (8.5-10.1); Chloride 102 mmol/L (98-107); Estimated GFR 53.12 (mL/min/1.73m2); Glucose 100 mg/dL (74-106); Potassium 4.3 mmol/L (3.5-5.1); Sodium 139 mmol/L (136-145); Total Protein 7.2 g/dL (6.4-8.2)
[2022-02-09 16:03] LABS: Iron 39 ug/dL (65-175); Total Iron Binding Capacity 229 ug/dL (250-450); Transferrin Sat 17 % (20-55)
[2022-02-09 16:16] LABS: Calculated LDL 24 mg/dL (<100); Cholesterol 80 mg/dL (<200); Ferritin 217 ng/mL (26-388); HDL Cholesterol 48 mg/dL (40-60); TSH 7.45 uIU/mL (0.36-3.74); Triglyceride 41 mg/dL (<150)
[2022-02-09 16:34] LABS: FREE T4 1.17 ng/dL (0.76-1.46)
[2022-02-09 21:50] LABS: T3,Free 2.6 pg/mL (2.8-5.3)
[2022-02-11 12:53] LABS: Apolipoprotein B, S 32 mg/dL
[2022-02-12 14:38] LABS: PSA, Ultrasensitive 2.3 ng/mL (<= 7.2)
[2022-02-14 15:44] LABS: Testosterone, Total <7.0 ng/dL (240-950)
== END 2022-02-09 23:25 | disposition home or self-care (01) ==
LOC: LBO 23:27
PROVIDERS: PCP Family Medicine; Visit Provider Internal Medicine
DX: C61 Malignant neoplasm of prostate; C79.51 Secondary malignant neoplasm of bone
CPT/HCPCS: 36415; 80053; 80061; 82172; 84153; 84403; 82728; 83540; 83550; 84439; 84443; 84481; 85025

== ENCOUNTER 2022-02-21 13:00 | Outpatient (RCR) | payer MEDICARE, SELFPAY | END 2022-02-27 23:59 | disposition home or self-care (01) | LOC: CR 13:00 | PROVIDERS: PCP Family Medicine; Visit Provider Internal Medicine Cardiovascular Disease | DX: Z51.89 Encounter for other specified aftercare (principal); Z95.1 Presence of aortocoronary bypass graft; I25.10 Atherosclerotic heart disease of native coronary artery without angina pectoris | CPT/HCPCS: S9472 ==

== ENCOUNTER 2022-03-19 13:13 | Outpatient (CLI) | payer MEDICARE, SELFPAY ==
[2022-03-19 12:45] LABS: Abs Immature Grans 0.02 10^3/uL (0.0-0.06); Absolute Basophil Count 0.05 10^3/uL (0.0-0.2); Absolute Eosinophil Count 0.32 10^3/uL (0.0-0.7); Absolute Monocyte Count 0.51 10^3/uL (0.1-0.8); Absolute Neutrophil Count 4.57 10^3/uL (1.2-6.7); Basophils % 0.7; Eosinophils % 4.7; HCT 40.3 % (40.0-50.0); Immature Grans % 0.3; Lymphocytes % 19.2; MCHC 32.3 % (32.0-36.0); MCV 93 fL (80-95); MPV 9.8 fL (8.0-11.0); Monocytes % 7.5; Neutrophils % 67.6; Platelet Count 285 10^3/uL (130-400); RBC 4.33 10^6/uL (4.36-5.78); RDW-SD 48.3 fL; WBC 6.77 10^3/uL (4.4-10.8)
[2022-03-19 13:14] LABS: ALT 54 U/L (16-63); AST 36 U/L (15-37); Albumin 3.5 g/dL (3.4-5.0); Alkaline Phosphatase 94 U/L (46-116); BUN 17 mg/dL (7-18); Bilirubin, Total 0.5 mg/dL (0.2-1.0); CREATININE 1.1 mg/dL (0.70-1.30); Calcium 8.8 mg/dL (8.5-10.1); Chloride 103 mmol/L (98-107); Glucose 113 mg/dL (74-106); Sodium 140 mmol/L (136-145); Total Protein 6.9 g/dL (6.4-8.2)
[2022-03-21 11:35] LABS: PSA, Ultrasensitive 0.95 ng/mL (<= 7.2)
[2022-03-22 14:01] LABS: Testosterone, Total <7.0 ng/dL (240-950)
== END 2022-03-19 13:14 | disposition home or self-care (01) ==
LOC: LBO 13:15
PROVIDERS: PCP Family Medicine; Visit Provider Internal Medicine
DX: C61 Malignant neoplasm of prostate (principal); C79.51 Secondary malignant neoplasm of bone
CPT/HCPCS: 36415; 80053; 84153; 84403; 85025

== ENCOUNTER 2022-03-28 13:00 | Outpatient (RCR) | payer MEDICARE, SELFPAY | END 2022-03-29 23:59 | disposition home or self-care (01) | LOC: CR 13:00 | PROVIDERS: PCP Family Medicine; Visit Provider Internal Medicine Cardiovascular Disease | DX: Z51.89 Encounter for other specified aftercare (principal); I25.10 Atherosclerotic heart disease of native coronary artery without angina pectoris; Z95.1 Presence of aortocoronary bypass graft | CPT/HCPCS: S9472 ==

== ENCOUNTER 2022-04-27 13:00 | Outpatient (RCR) | payer MEDICARE, SELFPAY | END 2022-04-29 23:59 | disposition home or self-care (01) | LOC: CR 13:00 | PROVIDERS: PCP Nurse Practitioner Family; Referring Provider Physician Assistant Surgical; Visit Provider Internal Medicine Cardiovascular Disease | DX: I25.10 Atherosclerotic heart disease of native coronary artery without angina pectoris (principal); Z51.89 Encounter for other specified aftercare; Z95.1 Presence of aortocoronary bypass graft | CPT/HCPCS: S9472 ==

== ENCOUNTER 2022-05-18 13:47 | Outpatient (RCR) | payer MEDICARE, SELFPAY | END 2022-05-30 23:59 | disposition home or self-care (01) | LOC: CR 13:47 | PROVIDERS: PCP Nurse Practitioner Family; Referring Provider Physician Assistant Surgical; Visit Provider Internal Medicine Cardiovascular Disease | DX: Z51.89 Encounter for other specified aftercare (principal); I25.10 Atherosclerotic heart disease of native coronary artery without angina pectoris; Z95.1 Presence of aortocoronary bypass graft | CPT/HCPCS: S9472 ==

== ENCOUNTER 2022-06-12 03:46 | Outpatient (CLI) | payer MEDICARE, OTHER, SELFPAY ==
[2022-06-12 09:42] LABS: Abs Immature Grans 0.02 10^3/uL (0.0-0.06); Absolute Basophil Count 0.04 10^3/uL (0.0-0.2); Absolute Eosinophil Count 0.23 10^3/uL (0.0-0.7); Absolute Lymphocyte Count 1.56 10^3/uL (1.2-3.4); Absolute Monocyte Count 0.68 10^3/uL (0.1-0.8); Absolute Neutrophil Count 4.08 10^3/uL (1.2-6.7); Basophils % 0.6; Eosinophils % 3.5; HCT 41.9 % (40.0-50.0); HGB 13.2 g/dL (13.5-17.5); Immature Grans % 0.3; Lymphocytes % 23.6; MCH 29.5 pg (27.0-33.0); MCHC 31.5 % (32.0-36.0); MCV 94 fL (80-95); Monocytes % 10.3; Neutrophils % 61.7; Platelet Count 248 10^3/uL (130-400); RBC 4.47 10^6/uL (4.36-5.78); RDW 14.6 % (11.8-14.1); RDW-SD 51.3 fL; WBC 6.61 10^3/uL (4.4-10.8)
[2022-06-12 10:19] LABS: ALT 24 U/L (16-63); AST 21 U/L (15-37); Albumin 3.4 g/dL (3.4-5.0); Alkaline Phosphatase 77 U/L (46-116); Anion Gap 4.3 mmol/L (3-11); BUN 14 mg/dL (7-18); Bilirubin, Total 0.5 mg/dL (0.2-1.0); CO2 32.7 mmol/L (21.0-32.0); CREATININE 1.3 mg/dL (0.70-1.30); Calcium 9.2 mg/dL (8.5-10.1); Chloride 105 mmol/L (98-107); Estimated GFR 55.53 (mL/min/1.73m2); Glucose 100 mg/dL (74-106); Potassium 4.4 mmol/L (3.5-5.1); Sodium 142 mmol/L (136-145); Total Protein 6.9 g/dL (6.4-8.2)
[2022-06-13 13:42] LABS: PSA, Ultrasensitive 0.63 ng/mL (<= 7.2)
[2022-06-16 08:49] LABS: Testosterone, Total <7.0 ng/dL (240-950)
== END 2022-06-12 03:47 | disposition home or self-care (01) ==
LOC: LBO 03:46
PROVIDERS: PCP Nurse Practitioner Family; Visit Provider Internal Medicine
DX: C61 Malignant neoplasm of prostate (principal)
CPT/HCPCS: 36415; 80053; 84153; 84403; 85025

== ENCOUNTER 2022-06-28 10:20 | Outpatient (RCR) | payer SELFPAY ==
[2022-05-31 10:00] VITALS: BP 133/83; PULSE 91
[2022-06-05 10:13] VITALS: BP 126/80; PULSE 79
[2022-06-07 10:09] VITALS: BP 112/73; PULSE 83; O2SAT 97
[2022-06-12 09:46] VITALS: BP 106/70; PULSE 77
[2022-06-14 10:16] VITALS: BP 131/73; PULSE 68
[2022-06-21 10:01] VITALS: BP 116/77; PULSE 77
[2022-06-26 10:09] VITALS: BP 105/71; PULSE 66
[2022-06-28 10:21] VITALS: BP 131/74; PULSE 89
== END 2022-06-29 23:59 | disposition home or self-care (01) ==
LOC: CR 10:20
PROVIDERS: PCP Nurse Practitioner Family; Visit Provider Internal Medicine Cardiovascular Disease
DX: R69 Illness, unspecified (principal)

== ENCOUNTER 2022-09-26 15:49 | Outpatient (CLI) | payer MEDICARE, SELFPAY ==
[2022-09-26 16:23] LABS: Abs Immature Grans 0.02 10^3/uL (0.0-0.06); Absolute Basophil Count 0.04 10^3/uL (0.0-0.2); Absolute Eosinophil Count 0.21 10^3/uL (0.0-0.7); Absolute Lymphocyte Count 1.29 10^3/uL (1.2-3.4); Absolute Monocyte Count 0.64 10^3/uL (0.1-0.8); Absolute Neutrophil Count 4.37 10^3/uL (1.2-6.7); Basophils % 0.6; Eosinophils % 3.2; HCT 40.8 % (40.0-50.0); HGB 13.1 g/dL (13.5-17.5); Immature Grans % 0.3; Lymphocytes % 19.6; MCH 30.3 pg (27.0-33.0); MCHC 32.1 % (32.0-36.0); MCV 94 fL (80-95); MPV 9.7 fL (8.0-11.0); Monocytes % 9.7; Neutrophils % 66.6; Platelet Count 320 10^3/uL (130-400); RBC 4.32 10^6/uL (4.36-5.78); RDW 13.5 % (11.8-14.1); RDW-SD 47.2 fL; WBC 6.57 10^3/uL (4.4-10.8)
[2022-09-26 16:38] LABS: ALT 21 U/L (16-63); AST 23 U/L (15-37); Albumin 3.4 g/dL (3.4-5.0); Alkaline Phosphatase 84 U/L (46-116); Anion Gap 10.5 mmol/L (3-11); BUN 16 mg/dL (7-18); Bilirubin, Total 0.5 mg/dL (0.2-1.0); CO2 25.5 mmol/L (21.0-32.0); CREATININE 1.2 mg/dL (0.70-1.30); Calcium 8.9 mg/dL (8.5-10.1); Chloride 107 mmol/L (98-107); Estimated GFR 61.13 (mL/min/1.73m2); Glucose 119 mg/dL (74-106); Potassium 3.8 mmol/L (3.5-5.1); Sodium 143 mmol/L (136-145)
[2022-09-27 14:13] LABS: Lab Add On Test DONE
[2022-09-27 14:28] LABS: Calculated LDL 38 mg/dL (<100); Cholesterol 108 mg/dL (<200); HDL Cholesterol 51 mg/dL (40-60); Triglyceride 96 mg/dL (<150)
[2022-10-01 14:03] LABS: Testosterone, Total <7.0 ng/dL (240-950)
[2022-10-03 10:40] LABS: PSA, Ultrasensitive 0.73 ng/mL (<= 7.2)
== END 2022-09-26 15:50 | disposition home or self-care (01) ==
LOC: LBO 16:01
PROVIDERS: PCP Nurse Practitioner Family; Visit Provider Internal Medicine
DX: C61 Malignant neoplasm of prostate (principal); R73.01 Impaired fasting glucose; E78.5 Hyperlipidemia, unspecified; C79.51 Secondary malignant neoplasm of bone
CPT/HCPCS: 36415; 80053; 80061; 84153; 84403; 83036; 85025

== ENCOUNTER 2022-12-19 03:11 | Outpatient (CLI) | payer MEDICARE, SELFPAY ==
[2022-12-19 11:22] LABS: Abs Immature Grans 0.01 10^3/uL (0.0-0.06); Absolute Basophil Count 0.03 10^3/uL (0.0-0.2); Absolute Eosinophil Count 0.25 10^3/uL (0.0-0.7); Absolute Lymphocyte Count 0.56 10^3/uL (1.2-3.4); Absolute Monocyte Count 0.49 10^3/uL (0.1-0.8); Absolute Neutrophil Count 3.94 10^3/uL (1.2-6.7); Basophils % 0.6; Eosinophils % 4.7; HCT 41.4 % (40.0-50.0); HGB 13.5 g/dL (13.5-17.5); Immature Grans % 0.2; Lymphocytes % 10.6; MCH 30.7 pg (27.0-33.0); MCHC 32.6 % (32.0-36.0); MCV 94 fL (80-95); MPV 9.3 fL (8.0-11.0); Monocytes % 9.3; Neutrophils % 74.6; Platelet Count 228 10^3/uL (130-400); RDW 14.6 % (11.8-14.1); RDW-SD 50.9 fL; WBC 5.28 10^3/uL (4.4-10.8)
[2022-12-19 11:38] LABS: ALT 27 U/L (16-63); AST 20 U/L (15-37); Albumin 3.6 g/dL (3.4-5.0); Alkaline Phosphatase 86 U/L (46-116); Anion Gap 3.4 mmol/L (3-11); BUN 12 mg/dL (7-18); Bilirubin, Total 0.3 mg/dL (0.2-1.0); CO2 30.6 mmol/L (21.0-32.0); Chloride 110 mmol/L (98-107); Estimated GFR 76.08 (mL/min/1.73m2); Glucose 117 mg/dL (74-106); Potassium 3.9 mmol/L (3.5-5.1); Sodium 144 mmol/L (136-145)
[2022-12-24 16:54] LABS: Testosterone, Total <7.0 ng/dL (240-950)
== END 2022-12-19 03:12 | disposition home or self-care (01) ==
PROVIDERS: PCP Nurse Practitioner Family; Visit Provider Nurse Practitioner Adult Health
DX: C61 Malignant neoplasm of prostate (principal); C79.51 Secondary malignant neoplasm of bone
CPT/HCPCS: 36415; 80053; 84153; 84403; 85025

== ENCOUNTER 2023-01-11 13:03 | Outpatient (CLI) | payer MEDICARE, SELFPAY ==
--- NOTE | 2023-01-11 12:45 | DI.RAD_ITS ---
Exam(s) XR CHEST 2V PA LATERAL EXAM: XR CHEST 2V PA LATERAL CLINICAL HISTORY: R/O CAP r05.8 cough TECHNIQUE: 2D digital imaging was performed. COMPARISON: CR CHEST 2 VIEWS PA,LAT from 02/18/2014 FINDINGS: HEART: Normal size. Status post CABG. Aorta: Not dilated. PULMONARY VASCULATURE: Normal. LUNGS: Clear. PLEURAL SPACE: No pleural effusion or pneumothorax. BONE:Unremarkable for age. Sternal wires. IMPRESSION: No acute abnormality. DATA REPOSITORY: RADIATION DOSE DELIVERED:
== END 2023-01-11 13:23 ==
LOC: DI 13:09
PROVIDERS: PCP Nurse Practitioner Family; Visit Provider Nurse Practitioner Family
DX: R05.8 Other specified cough (principal)
CPT/HCPCS: 71046

== ENCOUNTER 2023-02-04 01:23 | Outpatient (CLI) | payer MEDICARE, SELFPAY ==
--- NOTE | 2023-02-04 08:30 | DI.RAD_ITS ---
Exam(s) XR LUMBAR SPINE COMPLETE EXAM: XR LUMBAR SPINE COMPLETE CLINICAL HISTORY: back pain,m54.9. TECHNIQUE: 2D digital imaging was performed. Five views. COMPARISON: CR XR DEXA BONE DENSITY W/WO DERIK from 02/09/2022 FINDINGS: BONES: No fracture or destructive lesion. Vertebral body heights are maintained. Prominent facet hyp ertrophy identified at L4-5 and L5-S1.. DISKS: Intervertebral disc spaces are maintained. ALIGNMENT: Lumbar spinal alignment is within normal limits. SOFT TISSUE: Calcification in the abdominal aorta. IMPRESSION: Degenerative changes greatest of the facet joints at L4-5 and L5-S1. DATA REPOSITORY: RADIATION DOSE DELIVERED:
== END 2023-02-04 01:43 ==
LOC: DI 01:23
PROVIDERS: PCP Nurse Practitioner Family; Visit Provider Nurse Practitioner Family
DX: M54.9 Dorsalgia, unspecified (principal); M51.36 Other intervertebral disc degeneration, lumbar region
CPT/HCPCS: 72110

== ENCOUNTER 2023-03-18 11:52 | Outpatient (CLI) | payer MEDICARE, SELFPAY ==
[2023-03-18 11:10] LABS: Abs Immature Grans 0.03 10^3/uL (0.0-0.06); Absolute Basophil Count 0.02 10^3/uL (0.0-0.2); Absolute Eosinophil Count 0.25 10^3/uL (0.0-0.7); Absolute Lymphocyte Count 0.65 10^3/uL (1.2-3.4); Absolute Monocyte Count 0.48 10^3/uL (0.1-0.8); Absolute Neutrophil Count 4.09 10^3/uL (1.2-6.7); Basophils % 0.4; Eosinophils % 4.5; HCT 39.4 % (40.0-50.0); HGB 12.8 g/dL (13.5-17.5); Immature Grans % 0.5; Lymphocytes % 11.8; MCH 31.5 pg (27.0-33.0); MCHC 32.5 % (32.0-36.0); MCV 97 fL (80-95); MPV 9.6 fL (8.0-11.0); Monocytes % 8.7; Neutrophils % 74.1; Platelet Count 238 10^3/uL (130-400); RBC 4.06 10^6/uL (4.36-5.78); RDW 13.1 % (11.8-14.1); RDW-SD 46.6 fL; WBC 5.52 10^3/uL (4.4-10.8)
[2023-03-18 12:26] LABS: ALT 21 U/L (16-63); AST 26 U/L (15-37); Albumin 3.4 g/dL (3.4-5.0); Alkaline Phosphatase 84 U/L (46-116); Anion Gap 5.6 mmol/L (3-11); BUN 14 mg/dL (7-18); Bilirubin, Total 0.5 mg/dL (0.2-1.0); CO2 31.4 mmol/L (21.0-32.0); CREATININE 1.1 mg/dL (0.70-1.30); Calcium 9.1 mg/dL (8.5-10.1); Chloride 108 mmol/L (98-107); Estimated GFR 67.44 (mL/min/1.73m2); Glucose 105 mg/dL (74-106); Potassium 3.9 mmol/L (3.5-5.1); Sodium 145 mmol/L (136-145); Total Protein 6.8 g/dL (6.4-8.2)
[2023-03-28 09:02] LABS: Testosterone, Total <7.0 ng/dL (240-950)
== END 2023-03-18 11:53 | disposition home or self-care (01) ==
LOC: LBO 12:09
PROVIDERS: PCP Nurse Practitioner Family; Visit Provider Nurse Practitioner Adult Health
DX: C61 Malignant neoplasm of prostate (principal); C79.51 Secondary malignant neoplasm of bone
CPT/HCPCS: 36415; 80053; 84153; 84403; 85025

== ENCOUNTER 2023-04-17 12:55 | Outpatient (CLI) | payer MEDICARE, SELFPAY ==
[2023-04-17 14:33] LABS: FREE T4 0.91 ng/dL (0.76-1.46)
== END 2023-04-17 12:56 | disposition home or self-care (01) ==
LOC: LBO 13:00
PROVIDERS: PCP Nurse Practitioner Family; Visit Provider Nurse Practitioner Family
DX: E03.8 Other specified hypothyroidism (principal)
CPT/HCPCS: 36415; 84439; 84443

== ENCOUNTER 2023-04-19 01:02 | Outpatient (CLI) | payer MEDICARE, SELFPAY ==
--- NOTE | 2023-04-19 08:15 | DI.RAD_ITS ---
Exam(s) XR CERVICAL SPINE COMP 4-5V EXAM: XR CERVICAL SPINE COMP 4-5V CLINICAL HISTORY: chronic neck pain,m54.2. TECHNIQUE: 2D digital imaging was performed. COMPARISON: No exams were available for comparison FINDINGS: BONES: No evidence of fracture. Moderate narrowing of the C3-4 and C5-6 disc spaces. Severe narrowi ng versus fusion between the C5-6 vertebral body. Moderate narrowing at the C6-7 disc space severe n arrowing of the C7-T1 disc. Facet degenerative changes are seen, greatest at C3-4. There is severe neural foraminal narrowing th is level bilaterally, left greater than right. Milder degrees of neural foraminal narrowing are note d at the more inferior levels. There is straightening of the normal cervical lordosis secondary to the degenerative changes. SOFT TISSUE: Chronic appearing posterior calcifications. The airway appears normal. The lung apices are clear. IMPRESSION: Severe degenerative changes throughout the cervical spine. Severe bilateral neural foraminal narrowi ng C3-4. DATA REPOSITORY: RADIATION DOSE DELIVERED:
== END 2023-04-19 01:22 ==
LOC: DI 01:03
PROVIDERS: PCP Nurse Practitioner Family; Visit Provider Nurse Practitioner Family
DX: M50.321 Other cervical disc degeneration at C4-C5 level (principal); M50.322 Other cervical disc degeneration at C5-C6 level; M50.323 Other cervical disc degeneration at C6-C7 level
CPT/HCPCS: 72050

== ENCOUNTER 2023-06-18 03:46 | Outpatient (CLI) | payer MEDICARE, SELFPAY ==
[2023-06-18 08:27] LABS: ALT 15 U/L (16-63); AST 19 U/L (15-37); Albumin 3.2 g/dL (3.4-5.0); Alkaline Phosphatase 83 U/L (46-116); Anion Gap 6.4 mmol/L (3-11); BUN 14 mg/dL (7-18); Bilirubin, Total 0.4 mg/dL (0.2-1.0); CO2 29.6 mmol/L (21.0-32.0); CREATININE 1.2 mg/dL (0.70-1.30); Calcium 9.1 mg/dL (8.5-10.1); Chloride 107 mmol/L (98-107); Estimated GFR 60.75 (mL/min/1.73m2); Glucose 123 mg/dL (74-106); Potassium 3.7 mmol/L (3.5-5.1); Sodium 143 mmol/L (136-145); Total Protein 6.7 g/dL (6.4-8.2)
[2023-06-18 08:31] LABS: Abs Immature Grans 0.07 10^3/uL (0.0-0.06); Absolute Basophil Count 0.03 10^3/uL (0.0-0.2); Absolute Monocyte Count 0.53 10^3/uL (0.1-0.8); Absolute Neutrophil Count 4.17 10^3/uL (1.2-6.7); Basophils % 0.5; Eosinophils % 3.4; HCT 39.1 % (40.0-50.0); HGB 12.8 g/dL (13.5-17.5); Immature Grans % 1.2; Lymphocytes % 13.8; MCH 31.2 pg (27.0-33.0); MCHC 32.7 % (32.0-36.0); MCV 95 fL (80-95); MPV 9.8 fL (8.0-11.0); Monocytes % 9.1; Platelet Count 255 10^3/uL (130-400); RDW 13.3 % (11.8-14.1); RDW-SD 47.1 fL
[2023-06-20 10:06] LABS: PSA, Ultrasensitive 0.18 ng/mL (<= 7.2)
[2023-06-22 13:11] LABS: Testosterone, Total <7.0 ng/dL (240-950)
== END 2023-06-18 03:47 | disposition home or self-care (01) ==
PROVIDERS: Internal Medicine; PCP Nurse Practitioner Family; Visit Provider Nurse Practitioner Adult Health
DX: C61 Malignant neoplasm of prostate (principal); C79.51 Secondary malignant neoplasm of bone
CPT/HCPCS: 36415; 80053; 84153; 84403; 85025

== ENCOUNTER 2023-09-06 03:19 | Outpatient (CLI) | payer MEDICARE, SELFPAY ==
[2023-09-06 10:53] LABS: Abs Immature Grans 0.01 10^3/uL (0.0-0.06); Absolute Basophil Count 0.02 10^3/uL (0.0-0.2); Absolute Eosinophil Count 0.12 10^3/uL (0.0-0.7); Absolute Lymphocyte Count 0.65 10^3/uL (1.2-3.4); Absolute Monocyte Count 0.49 10^3/uL (0.1-0.8); Absolute Neutrophil Count 4.26 10^3/uL (1.2-6.7); Basophils % 0.4; Eosinophils % 2.2; HCT 37.4 % (40.0-50.0); HGB 12.2 g/dL (13.5-17.5); Immature Grans % 0.2; Lymphocytes % 11.7; MCH 30.4 pg (27.0-33.0); MCHC 32.6 % (32.0-36.0); MCV 93 fL (80-95); MPV 9.3 fL (8.0-11.0); Monocytes % 8.8; Neutrophils % 76.7; Platelet Count 266 10^3/uL (130-400); RBC 4.01 10^6/uL (4.36-5.78); RDW 13.8 % (11.8-14.1); RDW-SD 47.4 fL; WBC 5.55 10^3/uL (4.4-10.8)
[2023-09-06 11:10] LABS: ALT 26 U/L (16-63); AST 33 U/L (15-37); Albumin 3.2 g/dL (3.4-5.0); Alkaline Phosphatase 75 U/L (46-116); Anion Gap 5.1 mmol/L (3-11); BUN 12 mg/dL (7-18); Bilirubin, Total 0.4 mg/dL (0.2-1.0); CO2 30.9 mmol/L (21.0-32.0); CREATININE 1.2 mg/dL (0.70-1.30); Calcium 9.3 mg/dL (8.5-10.1); Chloride 108 mmol/L (98-107); Estimated GFR 60.75 (mL/min/1.73m2); Glucose 111 mg/dL (74-106); Potassium 3.8 mmol/L (3.5-5.1); Sodium 144 mmol/L (136-145); Total Protein 6.5 g/dL (6.4-8.2)
[2023-09-09 15:34] LABS: PSA, Ultrasensitive 0.16 ng/mL (<= 7.2)
[2023-09-12 01:59] LABS: Testosterone, Total <7.0 ng/dL (240-950)
== END 2023-09-06 03:20 | disposition home or self-care (01) ==
PROVIDERS: PCP Nurse Practitioner Family; Visit Provider Nurse Practitioner Adult Health
DX: C61 Malignant neoplasm of prostate (principal); C79.51 Secondary malignant neoplasm of bone
CPT/HCPCS: 36415; 80053; 84153; 84403; 85025

== ENCOUNTER → 2023-11-11 19:15 | Outpatient (CLI) | payer MEDICARE, SELFPAY ==
--- NOTE | 2023-11-11 16:04 | DI.RAD_ITS ---
Exam(s) XR CHEST 2V PA LATERAL EXAM: XR CHEST 2V PA LATERAL CLINICAL HISTORY: J10.1 Influenza due to other identified influenza virus w/other; cough TECHNIQUE: 2D digital imaging was performed. COMPARISON: CR XR CHEST 2V PA LATERAL from 01/11/2023 FINDINGS: HEART: Normal size. Status post CABG. Aorta: Not dilated. PULMONARY VASCULATURE: Normal. LUNGS: Clear. PLEURAL SPACE: No pleural effusion or pneumothorax. BONE:Unremarkable for age. Sternal wires. Soft tissues: Unremarkable. IMPRESSION: No acute abnormality. DATA REPOSITORY: RADIATION DOSE DELIVERED:
== END ==
PROVIDERS: PCP Nurse Practitioner Family; Visit Provider Physician Assistant
DX: J10.1 Influenza due to other identified influenza virus with other respiratory manifestations (principal)
CPT/HCPCS: 71046

== ENCOUNTER 2023-11-29 16:35 | Outpatient (CLI) | payer MEDICARE, SELFPAY ==
[2023-11-29 15:54] LABS: Abs Immature Grans 0.03 10^3/uL (0.0-0.06); Absolute Basophil Count 0.02 10^3/uL (0.0-0.2); Absolute Eosinophil Count 0.11 10^3/uL (0.0-0.7); Absolute Lymphocyte Count 0.87 10^3/uL (1.2-3.4); Absolute Monocyte Count 0.38 10^3/uL (0.1-0.8); Absolute Neutrophil Count 3.86 10^3/uL (1.2-6.7); Basophils % 0.4; Eosinophils % 2.1; HCT 40.3 % (40.0-50.0); HGB 12.8 g/dL (13.5-17.5); Immature Grans % 0.6; Lymphocytes % 16.5; MCH 29.5 pg (27.0-33.0); MCHC 31.8 % (32.0-36.0); MCV 93 fL (80-95); MPV 9.6 fL (8.0-11.0); Monocytes % 7.2; Neutrophils % 73.2; Platelet Count 267 10^3/uL (130-400); RBC 4.34 10^6/uL (4.36-5.78); RDW 14.3 % (11.8-14.1); RDW-SD 49.1 fL; WBC 5.27 10^3/uL (4.4-10.8)
[2023-11-29 16:26] LABS: ALT 20 U/L (16-63); AST 17 U/L (15-37); Albumin 3.2 g/dL (3.4-5.0); Alkaline Phosphatase 89 U/L (46-116); Anion Gap 9.1 mmol/L (3-11); BUN 12 mg/dL (7-18); Bilirubin, Total 0.4 mg/dL (0.2-1.0); CO2 29.9 mmol/L (21.0-32.0); Calcium 9.2 mg/dL (8.5-10.1); Chloride 106 mmol/L (98-107); Estimated GFR 75.61 (mL/min/1.73m2); Glucose 121 mg/dL (74-106); Potassium 3.7 mmol/L (3.5-5.1); Sodium 145 mmol/L (136-145); Total Protein 6.8 g/dL (6.4-8.2)
[2023-12-03 11:28] LABS: PSA, Ultrasensitive 0.14 ng/mL (<= 7.2)
[2023-12-04 11:49] LABS: Testosterone, Total <7.0 ng/dL (240-950)
== END 2023-11-29 16:36 | disposition home or self-care (01) ==
LOC: LBO 16:36
PROVIDERS: PCP Nurse Practitioner Family; Visit Provider Nurse Practitioner Adult Health
DX: C61 Malignant neoplasm of prostate (principal)
CPT/HCPCS: 36415; 80053; 84153; 84403; 85025

== ENCOUNTER 2024-02-07 17:59 | Outpatient (REF) | payer MEDICARE, SELFPAY ==
--- NOTE | 2024-02-07 11:40 | NAIL_PTH ---
PATIENT: Bill Aquino LOC: [facility] U#:[id number] AGE/SX: 84/M ROOM: RE02/07/[address]: James Ovalle DNP : 1940 BED: DIS: 02/07/2024 SPEC #: [id number] RECD: 02/10/24 12:14 STATUS: KACI REQ #: [id number] SONJA: 02/07/24 11:[address]: James Minor DEPT: Surgical Specimen RECD BY: Makeda Mata ENTERED: 02/10/24 12:15 SP TYPE: NAIL OTHR DR: ALE [place] Tissues: 1 - NAIL CLIPPINGS Procedures: SPECIAL STAIN 1 Comments: [id number] (SENT FRESH)
== END 2024-02-07 18:00 | disposition home or self-care (01) ==
LOC: LBN 17:59
PROVIDERS: PCP Nurse Practitioner Family; Visit Provider Nurse Practitioner Family
DX: L60.3 Nail dystrophy (principal); B35.1 Tinea unguium
CPT/HCPCS: 88302; 88312

== ENCOUNTER 2024-02-21 14:44 | Outpatient (CLI) | payer MEDICARE, SELFPAY ==
[2024-02-21 10:56] LABS: ALT 15 U/L (16-63); AST 22 U/L (15-37); Albumin 3.7 g/dL (3.4-5.0); Alkaline Phosphatase 80 U/L (46-116); BUN 17 mg/dL (7-18); Bilirubin, Total 0.4 mg/dL (0.2-1.0); CREATININE 1.1 mg/dL (0.70-1.30); Calcium 9.1 mg/dL (8.5-10.1); Chloride 108 mmol/L (98-107); Estimated GFR 67.02 (mL/min/1.73m2); Glucose 108 mg/dL (74-106); Potassium 4.2 mmol/L (3.5-5.1); Sodium 138 mmol/L (136-145)
[2024-02-21 11:12] LABS: Abs Immature Grans 0.02 10^3/uL (0.0-0.06); Absolute Basophil Count 0.02 10^3/uL (0.0-0.2); Absolute Eosinophil Count 0.22 10^3/uL (0.0-0.7); Absolute Lymphocyte Count 0.78 10^3/uL (1.2-3.4); Absolute Monocyte Count 0.51 10^3/uL (0.1-0.8); Absolute Neutrophil Count 4.09 10^3/uL (1.2-6.7); Basophils % 0.4 %; Eosinophils % 3.9 %; HCT 39.9 % (40.0-50.0); HGB 12.9 g/dL (13.5-17.5); Immature Grans % 0.4 %; Lymphocytes % 13.8 %; MCH 30.6 pg (27.0-33.0); MCHC 32.3 % (32.0-36.0); MCV 95 fL (80-95); MPV 9.6 fL (8.0-11.0); Neutrophils % 72.5 %; Platelet Count 273 10^3/uL (130-400); RBC 4.22 10^6/uL (4.36-5.78); RDW 14.1 % (11.8-14.1); RDW-SD 49.6 fL; WBC 5.64 10^3/uL (4.4-10.8)
[2024-02-26 14:50] LABS: Testosterone, Total <7.0 ng/dL (240-950)
== END 2024-02-21 14:45 | disposition home or self-care (01) ==
LOC: LBO 14:45
PROVIDERS: PCP Nurse Practitioner Family; Visit Provider Internal Medicine
DX: C61 Malignant neoplasm of prostate (principal)
CPT/HCPCS: 36415; 80053; 84153; 84403; 85025

== ENCOUNTER → 2024-03-19 13:13 | Outpatient (CLI) | payer MEDICARE, SELFPAY ==
--- NOTE | 2024-03-19 12:15 | DI.CT_ITS ---
Exam(s) CT HEAD WO EXAM: CT HEAD WO CLINICAL HISTORY: headache, hx mets to bone, on blood thinner R51.9. TECHNIQUE: Imaging Protocol: Axial computed tomography images with coronal and sagittal reformatted images were created and reviewed COMPARISON: No exams were available for comparison FINDINGS: Ventricles and Extra axial spaces: Normal in size and morphology for the patient's age. Hemorrhage: None. Cerebral parenchyma: There are areas of decreased attenuation in the white matter most suggestive of chronic microvascular ischemic disease. No mass effect is identified. Midline shift: None. Brainstem/Cerebellum: Normal. Calvarium: Normal. Visualized Paranasal sinuses/Mastoids: Clear. Soft Tissues: Unremarkable. IMPRESSION: No acute intracranial process. RADIATION DOSE DELIVERED: 783.8mGy.cm Total DLP DATA REPOSITORY: All CT scans at this facility are submitted to the National Radiology Data Registry (NRDR) Dose Index Registry (DIR) with the [employer] (ACR). RADIATION OPTIMIZATION: All CT scans at this facility use at least one of these dose optimization te chniques: automated exposure control; mA and/or kV adjustment per patient size (includes targeted exa ms where dose is matched to clinical indication); or iterative reconstruction.
== END ==
PROVIDERS: PCP Nurse Practitioner Family; Visit Provider Physician Assistant
DX: R51.9 Headache, unspecified (principal)
CPT/HCPCS: 70450

== ENCOUNTER 2024-03-19 13:15 | Outpatient (CLI) | payer MEDICARE, SELFPAY ==
[2024-03-19 13:07] LABS: Abs Immature Grans 0.02 10^3/uL (0.0-0.06); Absolute Basophil Count 0.03 10^3/uL (0.0-0.2); Absolute Eosinophil Count 0.14 10^3/uL (0.0-0.7); Absolute Lymphocyte Count 0.49 10^3/uL (1.2-3.4); Absolute Monocyte Count 0.55 10^3/uL (0.1-0.8); Absolute Neutrophil Count 5.68 10^3/uL (1.2-6.7); Basophils % 0.4 %; ESR 13 mm/hr (0-20); HCT 38.2 % (40.0-50.0); HGB 12.5 g/dL (13.5-17.5); Immature Grans % 0.3 %; Lymphocytes % 7.1 %; MCH 30.6 pg (27.0-33.0); MCHC 32.7 % (32.0-36.0); MCV 93 fL (80-95); MPV 9.5 fL (8.0-11.0); Neutrophils % 82.2 %; Platelet Count 230 10^3/uL (130-400); RBC 4.09 10^6/uL (4.36-5.78); RDW 13.6 % (11.8-14.1); RDW-SD 46.5 fL; WBC 6.91 10^3/uL (4.4-10.8)
[2024-03-20 09:17] LABS: Lyme Ab w Rflx to Lyme Confirm Negative (Negative)
[2024-03-22 18:03] LABS: Anaplasma phagocytophilum Negative (Negative); B. miyamotoi PCR Negative (Negative); Babesia divergens/MO-1 Negative (Negative); Babesia duncani Negative (Negative); Babesia microti Negative (Negative); Ehrlichia chaffeensis Negative (Negative); Ehrlichia ewingii/canis Negative (Negative); Ehrlichia muris eauclairensis Negative (Negative)
== END 2024-03-19 13:16 | disposition home or self-care (01) ==
LOC: LBO 13:17
PROVIDERS: PCP Nurse Practitioner Family; Visit Provider Physician Assistant
DX: R51.9 Headache, unspecified (principal)
CPT/HCPCS: 36415; 85652; 87798; 70450; 85025; 86618

== ENCOUNTER 2024-06-10 16:33 | Outpatient (CLI) | payer MEDICARE, SELFPAY ==
[2024-06-10 16:40] LABS: Abs Immature Grans 0.02 10^3/uL (0.0-0.06); Absolute Basophil Count 0.03 10^3/uL (0.0-0.2); Absolute Eosinophil Count 0.19 10^3/uL (0.0-0.7); Absolute Lymphocyte Count 1.04 10^3/uL (1.2-3.4); Absolute Monocyte Count 0.63 10^3/uL (0.1-0.8); Basophils % 0.5 %; Eosinophils % 2.9 %; HCT 42.7 % (40.0-50.0); HGB 13.6 g/dL (13.5-17.5); Immature Grans % 0.3 %; Lymphocytes % 15.7 %; MCH 30.6 pg (27.0-33.0); MCHC 31.9 % (32.0-36.0); MCV 96 fL (80-95); MPV 9.7 fL (8.0-11.0); Monocytes % 9.5 %; Neutrophils % 71.1 %; Platelet Count 255 10^3/uL (130-400); RBC 4.44 10^6/uL (4.36-5.78); RDW-SD 49.5 fL; WBC 6.61 10^3/uL (4.4-10.8)
[2024-06-10 17:22] LABS: ALT 23 U/L (16-63); AST 24 U/L (15-37); Albumin 3.7 g/dL (3.4-5.0); Alkaline Phosphatase 99 U/L (46-116); Anion Gap 7.4 mmol/L (3-11); BUN 13 mg/dL (7-18); Bilirubin, Total 0.29 mg/dL (0.2-1.0); CO2 30.6 mmol/L (21.0-32.0); CREATININE 1.2 mg/dL (0.70-1.30); Calcium 9.3 mg/dL (8.5-10.1); Chloride 105 mmol/L (98-107); Estimated GFR 60.38 (mL/min/1.73m2); Glucose 110 mg/dL (74-106); Potassium 4.2 mmol/L (3.5-5.1); Sodium 143 mmol/L (136-145); Total Protein 6.8 g/dL (6.4-8.2)
[2024-06-12 17:32] LABS: PSA, Ultrasensitive 0.09 ng/mL (<= 7.2)
[2024-06-16 14:22] LABS: Testosterone, Total <7.0 ng/dL (240-950)
== END 2024-06-10 16:34 | disposition home or self-care (01) ==
LOC: LBO 16:33
PROVIDERS: PCP Nurse Practitioner Family; Visit Provider Internal Medicine
DX: C61 Malignant neoplasm of prostate (principal); C79.51 Secondary malignant neoplasm of bone
CPT/HCPCS: 36415; 80053; 84153; 84403; 85025

== ENCOUNTER 2024-06-26 12:13 | Outpatient (REF) | payer MEDICARE, SELFPAY ==
[2024-06-26 21:13] LABS: Bilirubin Negative (Negative); Blood Large (Negative); Clarity Clear (Clear); Glucose Negative (Negative); Ketones Negative (Negative); Leukocyte Esterase Negative (Negative); Nitrite Negative (Negative); Urobilinogen 0.2 mg/dL (Up to 0.2)
[2024-06-26 21:32] LABS: Bacteria Negative HPF (Negative); C & S Indicated? No; Casts Negative LPF (Negative); Crystals Rare Calcium Oxalate HPF (Negative); Epithelial Cells Rare HPF (Negative); Mucus Negative (Negative); WBC 0-2 HPF (0-5)
[2024-06-26 21:51] LABS: Calculated LDL 38 mg/dL (<100); Cholesterol 112 mg/dL (<200); HDL Cholesterol 54 mg/dL (40-60); TSH (W/Ref FT4) 3.97 uIU/mL (0.36-3.74); Triglyceride 103 mg/dL (<150); Vitamin B12 763 pg/mL (193-986)
== END 2024-06-26 12:14 | disposition home or self-care (01) ==
LOC: LBN 12:13
PROVIDERS: PCP Nurse Practitioner Family; Visit Provider Nurse Practitioner Family
DX: R41.3 Other amnesia; N39.0 Urinary tract infection, site not specified
CPT/HCPCS: 80061; 81003; 81015; 82607; 84439; 84443

== ENCOUNTER 2024-08-08 20:27 | Emergency (ER) | payer MEDICARE, SELFPAY ==
[2024-08-08 20:30] VITALS: BP 191/92; PULSE 89; RESP 15; TEMP 36.6; O2SAT 98
--- NOTE | 2024-08-08 20:45 | ED.GENADUL_ITS ---
Discharge Plan Disposition Patient Disposition: Home Condition: Stable Discharge Details Clinical Impression: Cellulitis of great toe of left foot Primary Care Provider: Daina Leong ED Provider: Rolf Pizano Home Meds and New Rx's Prescriptions: Continued Lupron Depot (3 month) 22.5 mg syringe kit 22.5 mg IM [id number] tamsulosin [Flomax] 0.4 mg capsule 0.4 mg PO HS Qty: 90 3RF metoprolol succinate 25 mg tablet extended release 24 hr 12.5 mg PO DAILY Qty: 45 3RF atorvastatin 80 mg tablet 80 mg PO DAILY Qty: 90 3RF Eliquis 5 mg tablet 5 mg PO BID Qty: 180 3RF aspirin [Aspir-81] 81 mg tablet,delayed release (DR/EC) 81 mg PO DAILY Discharge Instructions Additional Instructions: Follow-up with your primary care provider if you not improving this week Make sure to keep the toe covered especially while wearing shoes or socks If you feel more ill or develop new symptoms such as severe pain or fevers return to the emergency department for reevaluation HPI General Mode of arrival: ambulatory . Date/Time Provider Initiated Documentation: 08/08/24 20:32 . Limitations to Documentation: no limitations . Information obtained by: patient . History of Present Illness 84 year old M presents to the emergency department with the chief complaint of Left big toe redness, described as mild, Quality is described as aching, and is localized to the left and lower extremity. Patient reports no radiation. Patient started experiencing this day(s) (1) and it has been constant. No relieving factors improve symptom(s), No exacerbating factors reported . Patient notes no other symptoms.. Patient did receive the following treatments prior to arrival, none Related Data Home Medications ?Medication ?Instructions ?Recorded ?Confirmed aspirin 81 mg tablet,delayed 81 mg PO DAILY 02/28/22 07/10/24 release (Aspir-) leuprolide (3 month) 22.5 mg (3 22.5 mg IM [id number] 06/20/22 07/10/24 month) intramuscular syringe kit (Lupron Depot) tamsulosin 0.4 mg capsule (Flomax) 0.4 mg PO HS #90 tab-caps 09/06/23 07/10/24 metoprolol succinate 25 mg 12.5 mg (1/2 x 25 mg) PO DAILY #45 12/02/23 07/10/24 tablet,extended release 24 hr tabs atorvastatin 80 mg tablet 80 mg PO DAILY #90 tabs 12/09/23 07/10/24 apixaban 5 mg tablet (Eliquis) 5 mg PO BID #180 tabs 05/29/24 07/10/24 Previous Rx's ?Medication ?Instructions ?Recorded tamsulosin 0.4 mg capsule (Flomax) 0.4 mg PO HS #90 tab-caps 09/06/23 metoprolol succinate 25 mg 12.5 mg (1/2 x 25 mg) PO DAILY #45 12/02/23 tablet,extended release 24 hr tabs atorvastatin 80 mg tablet 80 mg PO DAILY #90 tabs 12/09/23 apixaban 5 mg tablet (Eliquis) 5 mg PO BID #180 tabs 05/29/24 Allergies Allergy/AdvReac Type Severity Reaction Status Date / Time No Known Allergies Allergy Verified 07/10/24 10:44 General Stated Complaint: Orthopedic JUAN: 3 Review of Systems All systems reviewed & are unremarkable except as noted in HPI and below Constitutional Constitutional: Denies chills, Denies fever(s) and Denies weakness Eyes Eyes: Denies loss of vision ENT Ears, Nose, Mouth, and Throat: Denies change in voice Cardiovascular Cardiovascular: Denies chest pain and Denies dyspnea Respiratory Respiratory: Denies cough and Denies dyspnea Gastrointestinal Gastrointestinal: Denies abdominal pain, Denies nausea and Denies vomiting Integumentary/Breasts Skin/Breast: Reports rash Neurologic Neurologic: Denies loss of vision and Denies weakness Exam Const General: no acute distress Orientation: alert [facility] Head: normal to inspection Ears: external ears normal General nose exam: external nose normal Mouth: moist mucous membranes Eyes General: appearance normal, both eyes and all related structures Neck Neck: normal visual inspection Resp Effort & Inspection: normal respiratory effort and able to speak in complete sentences Cardio Rate: regular rate Neuro General: patient alert and patient oriented x3 Extrem General: full ROM and capillary refill normal Psych Mental Status: mental status grossly normal Course Vital Signs Vital signs: Vital Signs Temperature 36.6 C 08/08/24 20:30 Pulse 89 08/08/24 20:30 Respiratory Rate 15 08/08/24 20:30 Blood Pressure 191/92 H 08/08/24 20:30 Pulse Oximetry 98 08/08/24 20:30 Temperature 36.6 C 08/08/24 20:30 Pulse 89 08/08/24 20:30 Respiratory Rate 15 08/08/24 20:30 Blood Pressure 191/92 H 08/08/24 20:30 Blood Pressure Position Sitting 08/08/24 20:30 Pulse Oximetry 98 08/08/24 20:30 Oxygen Delivery Method Room Air 08/08/24 20:30 Oxygen Flow Rate 0 08/08/24 20:30 Medical Decision Making 84-year-old male comes in with a red and swollen left big toe. He denies any trauma, he did have his toenail removed recently and then wear a dressing while wearing a shoe today and also his right so came in for evaluation. He has no pain or fevers. He feels well otherwise. His left big distal toe is erythematous there is no drainage, no tenderness, is mildly warm. There is no tunneling lesions. Suspect cellulitis, will place him on Augmentin. Given there is no tunneling lesions and he has no fevers or systemic symptoms doubt entities such as osteomyelitis, sepsis or neck Fash so do not any labs or imaging indicated. 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 Father , 82 Stroke Sister No problems noted. Sister Diabetes Brother , 73 Essential hypertension Bone cancer Brother , 88 Stroke Brain aneurysm Daughter S/P thyroidectomy 02/2015 Son No problems noted. Daughter No problems noted. Maternal Grandfather No problems noted. Maternal Grandmother No problems noted. Paternal Grandfather No problems noted. Paternal Grandmother No problems noted. Social History Smoking/Tobacco Use Status: Former Tobacco Use tobacco type: cigarettes and pipe Quit Date: 09/30/84 Second Hand Exposure: Yes Smoking risk assessment performed?: Yes Alcohol Intake: former Drug use: Never Substance use type: does not use Caregiver/Support person: No Household members: none Housing: other Details: Travel Trailer Communication Needs: None Do you need help understanding health information?: Rarely Pets and animals: No Sexually active: No Do you think of yourself as: straight/heterosexual Current gender identity: male What is your relationship status?: How often do you talk on the phone with friends or family?: once per week How often do you get together with friends or relatives?: twice per week How often do you attend mormon or restorationism services?: 1-3 times per year Do you belong to any clubs or organized social groups?: yes Panel score (0-1 are the most socially isolated patients): 2 What type of physical activity do you participate in: walking and aerobic Duration: < 15 minutes/day Frequency: 1-2 times per week Afia/Episcopal: Temple Special afia needs: No Seatbelt use: always Helmet use: No Drive intox or ride w/intox team cdl driver: No
[2024-08-08] MEDS: Amoxicillin 875/Clav. 125 TAB PO (20:50)
--- NOTE | 2024-08-09 11:10 | W.EDPROG ---
Date of service: 08/09/24 Time of Service: 11:10 Medical Decision Making This 84-year-old male was seen in the emergency department last night and arrived today on my shift. He was diagnosed with cellulitis of his left foot, great toe last night for which she received an initial dose of amoxicillin clavulanic acid. Per provider note from last night he was supposed to go home on amoxicillin clavulanic acid. I was in touch with his provider from last night who inadvertently omitted to call in a prescription. Patient's original provider requested a 7-day course of twice daily amoxicillin clavulanic acid which I called into the patient's pharmacy. Quality:SDOH Health Related Social Needs: No Data to Display Discharge Plan Disposition Patient Disposition: Home Condition: Stable Discharge Details Clinical Impression: Cellulitis of great toe of left foot Primary Care Provider: Daina Leong ED Provider: Rolf Pizano Home Meds and New Rx's Prescriptions: New amoxicillin-pot clavulanate 875-125 mg tablet 1 tab PO BID 7 Days Qty: 14 0RF Continued Lupron Depot (3 month) 22.5 mg syringe kit 22.5 mg IM [id number] tamsulosin [Flomax] 0.4 mg capsule 0.4 mg PO HS Qty: 90 3RF metoprolol succinate 25 mg tablet extended release 24 hr 12.5 mg PO DAILY Qty: 45 3RF atorvastatin 80 mg tablet 80 mg PO DAILY Qty: 90 3RF Eliquis 5 mg tablet 5 mg PO BID Qty: 180 3RF aspirin [Aspir-81] 81 mg tablet,delayed release (DR/EC) 81 mg PO DAILY Discharge Instructions Additional Instructions: Follow-up with your primary care provider if you not improving this week Make sure to keep the toe covered especially while wearing shoes or socks If you feel more ill or develop new symptoms such as severe pain or fevers return to the emergency department for reevaluation Discharge Data Discharge Date/Time-TO BE ENTERED AT DEPARTURE: 08/08/24 21:04
== END 2024-08-08 21:04 | disposition home or self-care (01) ==
LOC: ER 20:53
PROVIDERS: Emergency Provider Emergency Medicine; PCP Nurse Practitioner Family
DX: L03.032 Cellulitis of left toe (principal)
CPT/HCPCS: 00123; 99283

== ENCOUNTER 2024-09-15 09:43 | Outpatient (CLI) | payer MEDICARE, SELFPAY ==
[2024-09-15 14:04] LABS: Abs Immature Grans 0.02 10^3/uL (0.0-0.06); Absolute Basophil Count 0.01 10^3/uL (0.0-0.2); Absolute Eosinophil Count 0.14 10^3/uL (0.0-0.7); Absolute Lymphocyte Count 0.63 10^3/uL (1.2-3.4); Absolute Monocyte Count 0.47 10^3/uL (0.1-0.8); Basophils % 0.2 %; Eosinophils % 2.2 %; HCT 41.1 % (40.0-50.0); HGB 13.1 g/dL (13.5-17.5); Immature Grans % 0.3 %; Lymphocytes % 9.7 %; MCH 30.7 pg (27.0-33.0); MCHC 31.9 % (32.0-36.0); MCV 96 fL (80-95); MPV 9.6 fL (8.0-11.0); Monocytes % 7.3 %; Neutrophils % 80.3 %; Platelet Count 267 10^3/uL (130-400); RBC 4.27 10^6/uL (4.36-5.78); RDW-SD 49.1 fL; WBC 6.47 10^3/uL (4.4-10.8)
[2024-09-15 14:18] LABS: ALT 19 U/L (16-63); AST 23 U/L (15-37); Albumin 3.5 g/dL (3.4-5.0); Alkaline Phosphatase 95 U/L (46-116); Anion Gap 9.9 mmol/L (3-11); BUN 10 mg/dL (7-18); Bilirubin, Total 0.27 mg/dL (0.2-1.0); CO2 30.1 mmol/L (21.0-32.0); CREATININE 1.3 mg/dL (0.70-1.30); Calcium 9.1 mg/dL (8.5-10.1); Chloride 105 mmol/L (98-107); Estimated GFR 54.85 (mL/min/1.73m2); Glucose 128 mg/dL (74-106); Potassium 4.2 mmol/L (3.5-5.1); Sodium 145 mmol/L (136-145)
[2024-09-17 10:08] LABS: PSA, Ultrasensitive 0.08 ng/mL (<= 7.2)
[2024-09-18 16:31] LABS: Testosterone, Total <7.0 ng/dL (240-950)
== END 2024-09-15 09:44 | disposition home or self-care (01) ==
PROVIDERS: PCP Nurse Practitioner Family; Visit Provider Nurse Practitioner
DX: C61 Malignant neoplasm of prostate (principal)
CPT/HCPCS: 36415; 80053; 84153; 84403; 85025

== ENCOUNTER 2025-01-25 16:48 | Outpatient (CLI) | payer MEDICARE, SELFPAY ==
[2025-01-25 16:49] LABS: Abs Immature Grans 0.02 10^3/uL (0.0-0.06); Absolute Basophil Count 0.03 10^3/uL (0.0-0.2); Absolute Eosinophil Count 0.18 10^3/uL (0.0-0.7); Absolute Monocyte Count 0.64 10^3/uL (0.1-0.8); Absolute Neutrophil Count 5.14 10^3/uL (1.2-6.7); Basophils % 0.4 %; Eosinophils % 2.7 %; HCT 40.3 % (40.0-50.0); HGB 12.9 g/dL (13.5-17.5); Immature Grans % 0.3 %; Lymphocytes % 10.4 %; MCH 30.3 pg (27.0-33.0); MCV 95 fL (80-95); Monocytes % 9.5 %; Neutrophils % 76.7 %; Platelet Count 229 10^3/uL (130-400); RBC 4.26 10^6/uL (4.36-5.78); RDW 13.4 % (11.8-14.1); WBC 6.71 10^3/uL (4.4-10.8)
[2025-01-25 17:10] LABS: ALT 35 U/L (16-63); AST 30 U/L (15-37); Albumin 3.4 g/dL (3.4-5.0); Alkaline Phosphatase 126 U/L (46-116); Anion Gap 7.2 mmol/L (3-11); BUN 15 mg/dL (7-18); Bilirubin, Total 0.5 mg/dL (0.2-1.0); CO2 32.8 mmol/L (21.0-32.0); CREATININE 1.1 mg/dL (0.70-1.30); Calcium 9.2 mg/dL (8.5-10.1); Chloride 104 mmol/L (98-107); Estimated GFR 67.02 (mL/min/1.73m2); Glucose 100 mg/dL (74-106); Sodium 144 mmol/L (136-145); Total Protein 6.8 g/dL (6.4-8.2)
[2025-01-28 10:34] LABS: PSA, Ultrasensitive 0.07 ng/mL (<= 7.2)
[2025-01-31 18:23] LABS: Testosterone, Total <7.0 ng/dL (240-950)
== END 2025-01-25 16:49 | disposition home or self-care (01) ==
LOC: LBO 16:48
PROVIDERS: PCP Nurse Practitioner Family; Visit Provider Nurse Practitioner
DX: R73.03 Prediabetes (principal); C61 Malignant neoplasm of prostate
CPT/HCPCS: 36415; 80053; 84153; 84403; 83036; 85025

== ENCOUNTER 2025-02-12 09:44 | Outpatient (REF) | payer MEDICARE, SELFPAY ==
[2025-02-12 22:22] LABS: Anion Gap 3.5 mmol/L (3-11); BUN 19 mg/dL (7-18); CO2 34.5 mmol/L (21.0-32.0); CREATININE 1.1 mg/dL (0.70-1.30); Calcium 9.4 mg/dL (8.5-10.1); Chloride 105 mmol/L (98-107); Estimated GFR 66.61 (mL/min/1.73m2); Glucose 105 mg/dL (74-106); Potassium 3.7 mmol/L (3.5-5.1); Sodium 143 mmol/L (136-145)
== END 2025-02-12 09:45 | disposition home or self-care (01) ==
LOC: LBN 09:44
PROVIDERS: PCP Nurse Practitioner Family; Visit Provider Physician Assistant
DX: M79.89 Other specified soft tissue disorders (principal)
CPT/HCPCS: 80048

== ENCOUNTER 2025-02-12 12:05 | Outpatient (CLI) | payer MEDICARE, SELFPAY ==
--- NOTE | 2025-02-12 12:00 | DI.US_ITS ---
Exam(s) US EXTREMITY VENOUS BI EXAM: US EXTREMITY VENOUS BI CLINICAL HISTORY: leg swelling,? DVT,M79.89 TECHNIQUE: Grayscale, color, and doppler imaging of the deep venous system of both lower extremities was performed. COMPARISON: US US ECHOCARDIOGRAM from 08/29/2021 FINDINGS: There is no evidence of intraluminal thrombus and there is normal compression and augmentation demons trated within the common femoral veins, femoral veins, and popliteal veins of both lower extremities. In the calves the interrogated veins also exhibit normal compression/ augmentation properties. The greater saphenous veins also appear patent as do the saphenofemoral junctions bilaterally.. IMPRESSION: 1. No ultrasound evidence of DVT in either lower extremity. DATA REPOSITORY:
== END 2025-02-12 12:25 ==
LOC: DI 12:05
PROVIDERS: PCP Nurse Practitioner Family; Visit Provider Physician Assistant
DX: M79.89 Other specified soft tissue disorders (principal)
CPT/HCPCS: 93970

== ENCOUNTER 2025-02-19 06:10 | Emergency (ER) | payer MEDICARE, SELFPAY ==
[2025-02-19 06:11] VITALS: BP 149/82; PULSE 82; RESP 18; TEMP 36.2; O2SAT 98
--- NOTE | 2025-02-19 06:15 | RT.EKG_ITS ---
APPROVED REPORT Exam: Resting ECG Reason for Exam: edema Patient Location: E HR:61 bpm ECG Measurements Heart Rate 61 AXIS ID 168 P 57 QRSd 140 QRS 75 QT 446 T 8 QTc 442 Conclusion Sinus bradycardia...rate< 60 Atrial premature complexes...SV complexes w/ short R-R intvls Right bundle branch block...QRSd>120, terminal axis(90,270) I have reviewed and interpreted ECG and agree with software generated interpretation.
[2025-02-19 06:18] VITALS: BP 149/82; RESP 18; TEMP 36.2; O2SAT 98
--- NOTE | 2025-02-19 06:39 | W.ED.GENAD ---
Discharge Plan Disposition Patient Disposition: Home Condition: Good Discharge Details Chief Complaint: GenMedical Clinical Impression: Mild peripheral edema Primary Care Provider: Daina Leong ED Provider: Martin Powell Home Meds and New Rx's Prescriptions: No Action atorvastatin 80 mg tablet 80 mg PO DAILY Qty: 90 3RF Lupron Depot (3 month) 22.5 mg syringe kit 22.5 mg IM [id number] Eliquis 5 mg tablet 5 mg PO BID Qty: 180 3RF tamsulosin [Flomax] 0.4 mg capsule 0.4 mg PO HS Qty: 90 3RF metoprolol succinate 25 mg tablet extended release 24 hr 12.5 mg PO DAILY Qty: 45 3RF furosemide 20 mg tablet 20 mg PO DAILY PRN (Reason: edema) Qty: 30 1RF aspirin [Aspir-81] 81 mg tablet,delayed release (DR/EC) 81 mg PO DAILY Discharge Instructions Instructions: Heart Failure ED Additional Instructions: At this time you have evidence of mild peripheral edema. Your heart is functioning well on the ultrasound, and there is no evidence of fluid in your lungs. Please take 40 mg of furosemide at noon today, and then take 40 mg daily for the next 2 to 3 days. Please wear the compression stockings that we have given you. Please avoid salty foods. If you notice any worsening of your symptoms, or any new symptoms such as vomiting, diarrhea, fever, chills, shortness of breath, chest pain, numbness, weakness, or fainting , please return immediately to the emergency department for reevaluation. Please follow up with your primary care provider as soon as possible for reassessment and reevaluation. As always, it was a pleasure participating in your medical care today. Referrals: Daina Leong, CHELSEY [Primary Care Provider] - HPI General Date/Time Provider Initiated Documentation: 02/19/25 06:13. HPI Narrative: This is a pleasant 85-year-old male with past medical history of stroke, CABG x 3, cholecystectomy, A-fib on apixaban, who is prescribed furosemide for as needed swelling who presents today for swelling of his lower extremities. Patient states that for the last 24 to 48 hours he has noticed swelling in his lower extremities. He denies any chest pain or shortness of breath. He does admit to drinking a fair bit of fruit juice recently, uncertain if it is a sodium based fruit juice like V8. He denies any significant food change otherwise. He denies any recent long trips surgeries or procedures. He denies any other complaints. Related Data Home Medications ?Medication ?Instructions ?Recorded ?Confirmed aspirin 81 mg tablet,delayed 81 mg PO DAILY 02/28/22 02/19/25 release (Aspir-) leuprolide (3 month) 22.5 mg (3 22.5 mg IM [id number] 06/20/22 02/19/25 month) intramuscular syringe kit (Lupron Depot) apixaban 5 mg tablet (Eliquis) 5 mg PO BID #180 tabs 05/29/24 02/19/25 tamsulosin 0.4 mg capsule (Flomax) 0.4 mg PO HS #90 caps 11/05/24 02/19/25 metoprolol succinate 25 mg 12.5 mg (1/2 x 25 mg) PO DAILY #45 12/31/24 02/19/25 tablet,extended release 24 hr tabs atorvastatin 80 mg tablet 80 mg PO DAILY #90 tabs 01/15/25 02/19/25 furosemide 20 mg tablet 20 mg PO DAILY PRN edema #30 tabs 01/22/25 02/19/25 Previous Rx's ?Medication ?Instructions ?Recorded apixaban 5 mg tablet (Eliquis) 5 mg PO BID #180 tabs 05/29/24 tamsulosin 0.4 mg capsule (Flomax) 0.4 mg PO HS #90 caps 11/05/24 metoprolol succinate 25 mg 12.5 mg (1/2 x 25 mg) PO DAILY #45 12/31/24 tablet,extended release 24 hr tabs atorvastatin 80 mg tablet 80 mg PO DAILY #90 tabs 01/15/25 furosemide 20 mg tablet 20 mg PO DAILY PRN edema #30 tabs 01/22/25 Allergies Allergy/AdvReac Type Severity Reaction Status Date / Time No Known Allergies Allergy Verified 02/19/25 06:39 General Stated Complaint: GenMedical JUAN: 3 Exam Narrative Exam Narrative: 1.Const: Well-nourished, Well-developed, appearing stated age 2.Eyes: PERRL, no conjunctival injection, and symmetrical lids. 3.ENT: Atraumatic external nose and ears. Moist MM. Neck: Symmetric, trachea midline, No thyromegaly. 4.CVS: +S1/S2, Peripheral pulses 2+ and equal in all extremities. Brisk capillary refill in all extremities. 5.RESP: Unlabored respiratory effort. Clear to auscultation bilaterally. No wheezes rales or rhonchi 6.GI: Soft, Nontender/Nondistended, No hepatosplenomegaly. No guarding or rebound. 7.MSK: Normocephalic/Atraumatic, Extremities w/o deformity or ttp No cyanosis or clubbing, Normal movement of all extremities +2 pitting edema bilaterally 8.Skin: Warm, Dry. No rashes or lesions. 9.Neuro: framing inspector II-XII grossly intact. Sensation grossly intact, no focal neurologic deficits. 10.Psych: (AAO) x3. Appropriate mood and affect Course Vital Signs Vital signs: Vital Signs Temperature 36.2 C L 02/19/25 06:11 Pulse 82 02/19/25 06:11 Respiratory Rate 18 02/19/25 06:11 Blood Pressure 149/82 H 02/19/25 06:11 Pulse Oximetry 98 02/19/25 06:11 Temperature 36.2 C L 02/19/25 06:18 Temperature Source Temporal Artery Scan 02/19/25 06:18 Pulse 82 02/19/25 06:11 Respiratory Rate 18 02/19/25 06:18 Respiratory Effort Normal, Non-Labored 02/19/25 06:18 Respiratory Depth Normal 02/19/25 06:18 Respiratory Pattern Normal 02/19/25 06:18 Blood Pressure 149/82 H 02/19/25 06:18 Blood Pressure Position Sitting 02/19/25 06:18 Pulse Oximetry 98 02/19/25 06:18 Oxygen Delivery Method Room Air 02/19/25 06:18 Oxygen Flow Rate 0 02/19/25 06:18 Pain Level 0 02/19/25 06:18 Medical Decision Making This is a pleasant 85-year-old male with past medical history of stroke, CABG x 3, cholecystectomy, A-fib on apixaban, who is prescribed furosemide for as needed swelling who presents today for swelling of his lower extremities. Patient states that for the last 24 to 48 hours he has noticed swelling in his lower extremities. He denies any chest pain or shortness of breath. He does admit to drinking a fair bit of fruit juice recently, uncertain if it is a sodium based fruit juice like V8. He denies any significant food change otherwise. He denies any recent long trips surgeries or procedures. He denies any other complaints. Exam demonstrates a well-appearing male, clear lung sounds, +2 pitting edema of the lower extremities bilaterally. No chest pain or shortness of breath to suggest ACS or severe CHF. EKG shows stable right bundle branch block. No STEMI. Bedside echo and lung ultrasound shows no evidence of B-lines or pulmonary edema. No pericardial effusion or signs of severe heart failure. Symptoms appear consistent with mild peripheral edema secondary to chronic preserved ejection fraction heart failure. No evidence to suggest blood clot, additionally the patient is on his anticoagulant. Patient took his first dose of his 40 mg furosemide today this morning while coming in. We will recommend second additional dose. Patient states that he has not taken a dose of his diuretic for it has been so long I am not going to tell you. As he has no hypoxemia or evidence of systemic failure I do not see an indication for IV diuretics, especially as he is essentially diuretic na?ve. We will recommend continued diuretic daily for the next 3 days. Will recommend compression stockings, and avoidance of salty foods. Patient otherwise stable for discharge. Discussed red flags for which to return. I have extensively reviewed the treatment plan and discharge instructions with the patient. I have addressed all patient concerns at this time. The patient was made aware of what symptoms to monitor for that would warrant a return to the emergency department. Discussed the plan with the patient, they demonstrate verbal understanding and agreement with our assessment and plan at this time. The documentation in this chart was dictated using [employer] dictation software. Please excuse any dictation errors. Quality:SDOH Health Related Social Needs: No Data to Display PFSH All Active Problems (Updated 02/19/25 @ 06:41 by Martin Powell DO) Mild peripheral edema (Acute) Prostate cancer metastatic to bone (Chronic ~10/2021) To right femoral neck and regional lymph nodes. [place]ed [place] [facility] [place] Coronary artery disease (Chronic) Ischemic cardiac arrest s/p emergent CABG x 3 01/19 Paroxysmal atrial fibrillation (Chronic) Hyperlipidemia (Chronic) Prediabetes (Chronic) Lower urinary tract symptoms (LUTS) (Chronic) Memory change (Acute) Subclinical hypothyroidism (Chronic) Medical History Squamous cell carcinoma in situ (SCCIS) Right scientology Stroke Essential hypertension Right bundle branch block AVNRT (AV nallely re-entry tachycardia) ablation 2013, followed by cardiology at [facility] Surgical History Status post Mohs surgery (03/20/23) S/P CABG x 3 (01/09/22) DRUMMOND to LAD, SVG to OM1, SVG to dRCA S/P cholecystectomy (~2014) Family History Mother , 86 No problems noted. Father , 82 Stroke Sister No problems noted. Sister Diabetes Brother , 73 Essential hypertension Bone cancer Brother , 88 Stroke Brain aneurysm Daughter S/P thyroidectomy 02/2015 Son No problems noted. Daughter No problems noted. Maternal Grandfather No problems noted. Maternal Grandmother No problems noted. Paternal Grandfather No problems noted. Paternal Grandmother No problems noted. Social History Smoking/Tobacco Use Status: Former Tobacco Use tobacco type: cigarettes and pipe Quit Date: 09/30/84 Second Hand Exposure: Yes Smoking risk assessment performed?: Yes Alcohol Intake: former Drug use: Never Substance use type: does not use Caregiver/Support person: No Household members: none Housing: other Details: Travel Trailer Communication Needs: None Do you need help understanding health information?: Rarely Pets and animals: No Sexually active: No Do you think of yourself as: straight/heterosexual Current gender identity: male What is your relationship status?: How often do you talk on the phone with friends or family?: once per week How often do you get together with friends or relatives?: twice per week How often do you attend baptism or adventism services?: 1-3 times per year Do you belong to any clubs or organized social groups?: yes Panel score (0-1 are the most socially isolated patients): 2 What type of physical activity do you participate in: walking and aerobic Duration: < 15 minutes/day Frequency: 1-2 times per week Afia/Jainism: Scientology Special afia needs: No Seatbelt use: always Helmet use: No Drive intox or ride w/intox compressed air pile driver operator: No Do you feel safe at home: Yes Do you feel safe in your relationship?: Yes
== END 2025-02-19 06:52 | disposition home or self-care (01) ==
PROVIDERS: Emergency Provider Student in an Organized Health Care Education/Training Program; PCP Nurse Practitioner Family
DX: R60.9 Edema, unspecified (principal); I48.91 Unspecified atrial fibrillation; I45.19 Other right bundle-branch block; I25.10 Atherosclerotic heart disease of native coronary artery without angina pectoris; Z86.73 Personal history of transient ischemic attack (TIA), and cerebral infarction without residual deficits; Z87.891 Personal history of nicotine dependence; Z79.82 Long term (current) use of aspirin
CPT/HCPCS: 76604; 93005; 99284; 93010

== ENCOUNTER 2025-03-29 08:43 | Outpatient (CLI) | payer MEDICARE, SELFPAY ==
--- NOTE | 2025-03-29 08:30 | RT.EKG_ITS ---
APPROVED REPORT Exam: Resting ECG Reason for Exam: PAF Patient Location: O HR:82 bpm ECG Measurements Heart Rate 82 AXIS NH 149 P 75 QRSd 131 QRS 70 QT 406 T 13 QTc 475 Conclusion Sinus rhythm...normal P axis, V-rate 50- 99 Right bundle branch block...QRSd>120, terminal axis(90,270)
== END 2025-03-29 08:44 | disposition home or self-care (01) ==
LOC: DI.CARD 08:44
PROVIDERS: PCP Nurse Practitioner Family; Visit Provider Registered Nurse
DX: I25.10 Atherosclerotic heart disease of native coronary artery without angina pectoris (principal); I45.10 Unspecified right bundle-branch block; I48.0 Paroxysmal atrial fibrillation
CPT/HCPCS: 93010

== ENCOUNTER → 2025-03-29 12:49 | Outpatient (BNVA) | payer MEDICARE, SELFPAY | PROVIDERS: PCP Nurse Practitioner Family; Referring Provider Nurse Practitioner Family; Visit Provider Registered Nurse | DX: I25.10 Atherosclerotic heart disease of native coronary artery without angina pectoris (principal); I48.0 Paroxysmal atrial fibrillation; I45.10 Unspecified right bundle-branch block; I47.10 Supraventricular tachycardia, unspecified; Z79.01 Long term (current) use of anticoagulants; Z79.02 Long term (current) use of antithrombotics/antiplatelets | CPT/HCPCS: 99214; 93005 ==

== ENCOUNTER 2025-04-16 14:45 | Outpatient (CLI) | payer MEDICARE, SELFPAY ==
--- NOTE | 2025-04-16 12:15 | DI.RAD_ITS ---
Exam(s) XR ABDOMEN FLAT UPRIGHT EXAM: XR ABDOMEN FLAT UPRIGHT CLINICAL HISTORY: K59.00 Constipation unspecified, evalauate pathology. TECHNIQUE: 2D digital imaging was performed. COMPARISON: No exams were available for comparison FINDINGS: Single AP supine view of the abdomen and pelvis: There is abundant fecal material noted throughout the colon. However, there does not appear to be abundant fecal material in the rectum itself. There are 4 seeds noted in the prostate gland. There is some degenerative changes in the lower lumbar spine. No osseous lesions in the pelvis. No abnormal calcifications. IMPRESSION: Abundant fecal material in the colon consistent with probable constipation. However, there does not appear to be distension of the rectum with fecal material. DATA REPOSITORY: RADIATION DOSE DELIVERED:
== END 2025-04-16 15:05 ==
LOC: DI 14:46
PROVIDERS: PCP Nurse Practitioner Family; Visit Provider Nurse Practitioner Family
DX: K59.00 Constipation, unspecified (principal)
CPT/HCPCS: 74019

== ENCOUNTER 2025-04-19 11:12 | Emergency (ER) | payer MEDICARE, SELFPAY ==
[2025-04-19 11:25] VITALS: BP 127/83; PULSE 90; RESP 16; TEMP 37; O2SAT 98
--- NOTE | 2025-04-19 11:29 | ED.GENADUL_ITS ---
Discharge Plan Disposition Patient Disposition: Home Condition: Stable Discharge Details Clinical Impression: Constipation Primary Care Provider: Daina Leong ED Provider: Maria Luisa Aquino Home Meds and New Rx's Prescriptions: Continued Eliquis 5 mg tablet 5 mg PO BID Qty: 180 3RF atorvastatin 80 mg tablet 80 mg PO DAILY Qty: 90 3RF metoprolol succinate 25 mg tablet extended release 24 hr 12.5 mg PO DAILY Qty: 45 3RF tamsulosin [Flomax] 0.4 mg capsule 0.4 mg PO HS Qty: 90 3RF Lupron Depot (3 month) 22.5 mg syringe kit 22.5 mg IM [id number] furosemide 20 mg tablet See Rx Instructions .ROUTE .COMPLEX Qty: 180 3RF Dose Instruction: TAKE 2 TABLETS BY MOUTH DAILY FOR SWELLING Rx Instructions: TAKE 2 TABLETS BY MOUTH DAILY FOR SWELLING aspirin [Aspir-81] 81 mg tablet,delayed release (DR/EC) 81 mg PO DAILY Discharge Instructions Instructions: Constipation, Adult ED Additional Instructions: Try prunes or prune juice for the next 3 to 5 days. Increase water consumption over the next 2 to 3 days. Return to the ER for any abdominal pain not relieved by Tylenol or ibuprofen, fe surekha over 100.8, vomiting, blood in your stool or vomiting blood or concerns. Follow up with primary care provider in 3-5 days. Return to ED sooner if any worsening or concerns. Thank you for allowing us to care for you today Referrals: Daina Leong NP [Primary Care Provider, Medicine] - Return if symptoms worsen Discharge Data Discharge Date/Time-TO BE ENTERED AT DEPARTURE: 04/19/25 13:30 HPI General Mode of arrival: ambulatory . Date/Time Provider Initiated Documentation: 04/19/25 11:23 . Limitations to Documentation: no limitations . Information obtained by: patient, RN notes reviewed and old records reviewed . HPI Narrative: Presents to the ER with complaint constipation, had an x-ray recently however his imaging shows abundant fecal material in the rectum. Denies abdominal pain fever or vomiting or systemic symptoms. He does take apixaban daily. PMHx CaBG x 3, SVT, CVA, HTN, Squamous cell carcinoma, RBBB. SHx includes cholecystectomy CABG 2021. Related Data Home Medications ?Medication ?Instructions ?Recorded ?Confirmed aspirin 81 mg tablet,delayed 81 mg PO DAILY 02/28/22 0 04/19/25 release (Aspir-) leuprolide (3 month) 22.5 mg (3 22.5 mg IM [id number] 04/19/25 month) intramuscular syringe kit (Lupron Depot) apixaban 5 mg tablet (Eliquis) 5 mg PO BID #180 tabs 0 02/23/25 04/19/25 atorvastatin 80 mg tablet 80 mg PO DAILY #90 tabs 01/2904/19/25 metoprolol succinate 25 mg 12.5 mg (1/2 x 25 mg) PO DA ZOHAIB #45 02/23/25 04/19/25 tablet,extended release 24 hr tabs tamsulosin 0.4 mg capsule (Flomax) 0.4 mg PO HS #90 ca ps 02/23/25 04/19/25 furosemide 20 mg tablet See Rx Instructions .Route 0 04/05/25 04/19/25 .COMPLEX #180 tabs Previous Rx's ?Medication ?Instructions ?Recorded apixaban 5 mg tablet (Eliquis) 5 mg PO BID #180 tabs 0 02/23/25 atorvastatin 80 mg tablet 80 mg PO DAILY #90 tabs 01/29 04/23 metoprolol succinate 25 mg 12.5 mg (1/2 x 25 mg) PO DA ZOHAIB #45 02/23/25 tablet,extended release 24 hr tabs tamsulosin 0.4 mg capsule (Flomax) 0.4 mg PO HS #90 ca ps 02/23/25 furosemide 20 mg tablet See Rx Instructions .Route 0 04/05/25 .COMPLEX #180 tabs Allergies Allergy/AdvReac Type Severity Reaction Status Date / Time No Known Allergies Allergy Verified 04/19/25 11:29 General Stated Complaint: Abd Prob JUAN: 3 Review of Systems All systems reviewed & are unremarkable except as noted in HPI and below Constitutional Constitutional: Reports as per HPI, Denies chills, Denies fatigue and Denies fever(s) Gastrointestinal Gastrointestinal: Denies abdominal pain, Reports bloating, Denies hematochezia and Reports constipation (x 2 weeks) Endocrine Endocrine: Denies fatigue Exam Narrative Exam Narrative: Constitutional: Alert and oriented x3. Appears stated age. Normal body habitus. Head: Normocephalic, no trauma. Eyes: Pupils PERRL, EOM's intact. Eyelids symmetrical without lesions, discharge, or swelling. Chest: RRR, Normal S1, S2, distal pulses intact. Resp: Lungs clear to auscultation bilaterally, no wheezes, rales, or rhonchi. Abdomen: Soft, non-distended, Normoactive bowel sounds all 4 quads. Mild bloating and tenderness discomfort in his lower abdomen no guarding no masses palpated no rebound tenderness. Musculoskeletal: Normal gait, Moves all 4 extremities without difficulty. Skin: No suspicious rashes or lesions. Capillary refill less than 2 sec. Neurologic: Cranial nerves II-XII intact. Alert and oriented x 3. Motor: No deficits noted. Hematologic/Lymphatic: No ecchymosis, no lymphadenopathy. Course Vital Signs Vital signs: Vital Signs Temperature 37.0 C 04/19/25 11: Pulse 90 04/19/25 11:25 Respiratory Rate 16 04/19/25 11:25 Blood Pressure 127/83 04/19/25 11:25 Pulse Oximetry 98 04/19/25 11:25 Temperature 37.0 C 04/19/25 11:25 Temperature Source Oral 04/19/25 11:25 Pulse 90 04/19/25 11:25 Respiratory Rate 16 04/19/25 11:25 Blood Pressure 127/83 04/19/25 11:25 Blood Pressure Position Sitting 04/19/25 11:25 Pulse Oximetry 98 04/19/25 11:25 Oxygen Delivery Method Room Air 04/19/25 11:25 Oxygen Flow Rate 0 04/19/25 11:25 Pain Level 0 04/19/25 11:25 Medical Decision Making Presents to the ER with complaint constipation, had an x-ray recently however his imaging shows abundant fecal material in the rectum. Denies abdominal pain fever or vomiting or systemic symptoms. He does take apixaban daily. PMHx CaBG x 3, SVT, CVA, HTN, Squamous cell carcinoma, RBBB. SHx includes cholecystectomy CABG 2021. On patient reevaluation he has had success with the soapsuds enema. Reports feeling better abdomen is soft nontender with palpation. I did discuss home care with him strict return instructions to return if any worsening abdominal pain, vomiting bloody stool or bloody vomit fever or feeling sicker at any time and follow-up he verbalizes understanding. Patient has remained ANO x 4 alert and oriented and hemodynamically stable throughout the remainder of his stay. This text was generated using [email or web address][email or web address] system, please disregard any oddities of phrase or misspellings. Medical Records Medical records reviewed: Yes I reviewed the patient's medical records. 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 Followed by [facility] [place] On[place] Coronary artery disease (Chronic) Ischemic cardiac arrest s/p emergent CABG x 3 01/19 Paroxysmal atrial fibrillation (Chronic) Hyperlipidemia (Chronic) Prediabetes (Chronic) Lower urinary tract symptoms (LUTS) (Chronic) Memory change (Acute) Subclinical hypothyroidism (Chronic) Medical History Squamous cell carcinoma in situ (SCCIS) Right yazdanism Stroke Essential hypertension Right bundle branch block AVNRT (AV nallely re-entry tachycardia) ablation 2013, followed by cardiology at [facility] Surgical History Status post Mohs surgery (03/20/23) S/P CABG x 3 (01/09/22) DRUMMOND to LAD, SVG to OM1, SVG to dRCA S/P cholecystectomy (~2014) Family History Mother , 86 No problems noted. Father , 82 Stroke Sister No problems noted. Sister Diabetes Brother , 73 Essential hypertension Bone cancer Brother , 88 Stroke Brain aneurysm Daughter S/P thyroidectomy 02/2015 Son No problems noted. Daughter No problems noted. Maternal Grandfather No problems noted. Maternal Grandmother No problems noted. Paternal Grandfather No problems noted. Paternal Grandmother No problems noted. Social History Smoking/Tobacco Use Status: Former Tobacco Use tobacco type: cigarettes and pipe Quit Date: 09/30/84 Second Hand Exposure: Yes Smoking risk assessment performed?: Yes Alcohol Intake: former Drug use: Never Substance use type: does not use Caregiver/Support person: No Household members: none Housing: other Details: Travel Trailer Communication Needs: None Do you need help understanding health information?: Rarely Pets and animals: No Sexually active: No Do you think of yourself as: straight/heterosexual Current gender identity: male What is your relationship status?: How often do you talk on the phone with friends or family?: once per week How often do you get together with friends or relatives?: twice per week How often do you attend sabianist or buddhist services?: 1-3 times per year Do you belong to any clubs or organized social groups?: yes Panel score (0-1 are the most socially isolated patients): 2 What type of physical activity do you participate in: walking and aerobic Duration: < 15 minutes/day Frequency: 1-2 times per week Afia/Mosque: Baptism Special afia needs: No Seatbelt use: always Helmet use: No Drive intox or ride w/intox rail car driver: No Do you feel safe at home: Yes Do you feel safe in your relationship?: Yes
[2025-04-19 13:31] VITALS: BP 127/83; PULSE 90; RESP 16; TEMP 37; O2SAT 98
== END 2025-04-19 13:30 | disposition home or self-care (01) ==
PROVIDERS: Emergency Provider Registered Nurse Emergency; PCP Nurse Practitioner Family
DX: K59.00 Constipation, unspecified (principal); I10 Essential (primary) hypertension; I48.0 Paroxysmal atrial fibrillation; E78.5 Hyperlipidemia, unspecified; Z95.1 Presence of aortocoronary bypass graft; Z86.73 Personal history of transient ischemic attack (TIA), and cerebral infarction without residual deficits; Z79.01 Long term (current) use of anticoagulants; Z79.82 Long term (current) use of aspirin; Z87.891 Personal history of nicotine dependence
CPT/HCPCS: 99283

== ENCOUNTER 2025-04-22 14:31 | Outpatient (CLI) | payer MEDICARE, SELFPAY ==
[2025-04-22 14:47] LABS: Abs Immature Grans 0.01 10^3/uL (0.0-0.06); HCT 38.6 % (40.0-50.0); HGB 12.5 g/dL (13.5-17.5); Immature Grans % 0.2 %; MCH 30.6 pg (27.0-33.0); MCHC 32.4 % (32.0-36.0); MCV 94 fL (80-95); MPV 9.1 fL (8.0-11.0); Platelet Count 236 10^3/uL (130-400); RBC 4.09 10^6/uL (4.36-5.78); RDW 13.9 % (11.8-14.1); RDW-SD 48.9 fL; WBC 5.02 10^3/uL (4.4-10.8)
[2025-04-22 15:04] LABS: ALT 28 U/L (16-63); AST 26 U/L (15-37); Albumin 3.3 g/dL (3.4-5.0); Alkaline Phosphatase 96 U/L (46-116); Anion Gap 6.1 mmol/L (3-11); BUN 18 mg/dL (7-18); Bilirubin, Total 0.4 mg/dL (0.2-1.0); CO2 30.9 mmol/L (21.0-32.0); Calcium 9.2 mg/dL (8.5-10.1); Chloride 106 mmol/L (98-107); Estimated GFR 74.68 (mL/min/1.73m2); Glucose 97 mg/dL (74-106); Potassium 4.6 mmol/L (3.5-5.1); Sodium 143 mmol/L (136-145); Total Protein 6.5 g/dL (6.4-8.2)
== END 2025-04-22 14:32 | disposition home or self-care (01) ==
LOC: LBO 14:31
PROVIDERS: PCP Nurse Practitioner Family; Visit Provider Nurse Practitioner
DX: C61 Malignant neoplasm of prostate (principal)
CPT/HCPCS: 36415; 80053; 84153; 84403; 85025

== ENCOUNTER 2025-07-20 10:34 | Outpatient (CLI) | payer MEDICARE, SELFPAY ==
[2025-07-20 15:21] LABS: Abs Immature Grans 0.01 10^3/uL (0.0-0.06); HCT 40.8 % (40.0-50.0); HGB 13.1 g/dL (13.5-17.5); Immature Grans % 0.2 %; MCH 30.1 pg (27.0-33.0); MCHC 32.1 % (32.0-36.0); MCV 94 fL (80-95); MPV 9.5 fL (8.0-11.0); Platelet Count 260 10^3/uL (130-400); RBC 4.35 10^6/uL (4.36-5.78); RDW 13.9 % (11.8-14.1); RDW-SD 48.1 fL; WBC 4.75 10^3/uL (4.4-10.8)
[2025-07-20 15:38] LABS: ALT 17 U/L (16-63); AST 28 U/L (15-37); Albumin 3.4 g/dL (3.4-5.0); Alkaline Phosphatase 98 U/L (46-116); Anion Gap 6.9 mmol/L (3-11); BUN 12 mg/dL (7-18); Bilirubin, Total 0.5 mg/dL (0.2-1.0); CO2 31.1 mmol/L (21.0-32.0); Calcium 8.9 mg/dL (8.5-10.1); Chloride 105 mmol/L (98-107); Estimated GFR 74.68 (mL/min/1.73m2); Glucose 102 mg/dL (74-106); Potassium 4.5 mmol/L (3.5-5.1); Sodium 143 mmol/L (136-145); Total Protein 7.0 g/dL (6.4-8.2)
== END 2025-07-20 10:35 | disposition home or self-care (01) ==
LOC: LBO 10:35
PROVIDERS: PCP Nurse Practitioner Family; Visit Provider Nurse Practitioner
DX: C61 Malignant neoplasm of prostate (principal)
CPT/HCPCS: 36415; 80053; 84153; 84403; 85025

== ENCOUNTER 2025-08-20 11:26 | Outpatient (CLI) | payer MEDICARE, SELFPAY ==
[2025-08-20 12:15] LABS: Abs Immature Grans 0.02 10^3/uL (0.0-0.06); HCT 40.0 % (40.0-50.0); HGB 13.0 g/dL (13.5-17.5); Immature Grans % 0.3 %; MCH 30.0 pg (27.0-33.0); MCHC 32.5 % (32.0-36.0); MCV 92 fL (80-95); MPV 9.6 fL (8.0-11.0); Platelet Count 250 10^3/uL (130-400); RBC 4.34 10^6/uL (4.36-5.78); RDW 14.2 % (11.8-14.1); RDW-SD 48.2 fL; WBC 6.02 10^3/uL (4.4-10.8)
[2025-08-20 14:03] LABS: Hemoglobin A1C 5.7 % (<5.7)
[2025-08-20 14:25] LABS: Ferritin 23 ng/mL (11-307)
[2025-08-20 14:26] LABS: Cholesterol 131 mg/dL (<200); HDL Cholesterol 50 mg/dL (>40); TSH (W/Ref FT4) 3.70 uIU/mL (0.55-4.78)
[2025-08-20 14:54] LABS: Vitamin B12 347 pg/mL (211-911)
== END 2025-08-20 11:27 | disposition home or self-care (01) ==
PROVIDERS: PCP Nurse Practitioner Family; Visit Provider Nurse Practitioner Family
DX: R41.89 Other symptoms and signs involving cognitive functions and awareness (principal); R73.03 Prediabetes; D64.9 Anemia, unspecified; E78.5 Hyperlipidemia, unspecified; E03.8 Other specified hypothyroidism
CPT/HCPCS: 36415; 80061; 82607; 82728; 83036; 84443; 85025

== ENCOUNTER → 2025-09-24 00:09 | Outpatient (CLI) | payer MEDICARE, SELFPAY ==
--- NOTE | 2025-09-24 08:08 | DI.MRI_ITS ---
Exam(s) MR BRAIN WO EXAM: MR BRAIN WO CLINICAL HISTORY: memory loss, cognitive impairment R41.3 AMNESIA R41.89 COGNITIVE FUNCTIONS TECHNIQUE: Multiplanar multisequence MRI of the brain was performed. COMPARISON: CT CT HEAD WO from 03/19/2024 FINDINGS: VENTRICLES AND EXTRA AXIAL SPACES: Normal in size and morphology for the patient's age. There is global cerebral atrophy consistent with the patient's age. MIDLINE SHIFT: None. CEREBRAL PARENCHYMA: No focus of restricted diffusion to suggest acute infarct. No space-occupying lesion identified. There are areas of hyperintense signal seen in the white matter on the FLAIR and T2 weighted images consistent with chronic microvascular ischemic disease. Note is made of an old lacune in the right esteban radiata. HEMORRHAGE: None. BRAINSTEM/CEREBELLUM: Normal. CALVARIUM: Normal. VISUALIZED PARANASAL SINUSES/MASTOIDS:Clear. [place]: Normal flow void. PITUITARY GLAND: Unremarkable. OTHER FINDINGS: None. IMPRESSION: 1. Global cerebral atrophy consistent with the patient's age. 2. Chronic microvascular ischemic disease. 3. There is no evidence of an acute infarct. DATA REPOSITORY:
== END ==
LOC: DI 00:09
PROVIDERS: PCP Nurse Practitioner Family; Visit Provider Nurse Practitioner Family
DX: R41.3 Other amnesia (principal); R41.89 Other symptoms and signs involving cognitive functions and awareness
CPT/HCPCS: 70551